=== PATIENT | female | born 1930 | race Caucasian/White ===

== ENCOUNTER 2017-04-16 15:52 | Inpatient (IN) ==
--- NOTE | 2017-04-16 16:27 | Emergency Department Report ---
SOB HPI - General Chief Complaint: Shortness of Breath/Dyspnea Stated Complaint: SOA,weakness Time Seen by Provider: 04/16/17 16:10 Source: patient, old records reviewed Limitations: no limitations - History of Present Illness Pt comes to us from the [facility] with reports of SOA and wheezing. Patient was seen in our ER on 04/15 due to the same and stabilized after receiving lasix. Apparently patient became SOA with wheezing again today and came to the ER. Family reports that she was requiring supplemental oxygen and had to sleep in a recliner because when she would lay flat her oxygen saturations would drop in the low 80's. Patient is alert and oriented, she is in no acute distress at this time. Room air sats 93 - 95% Lungs have crackles bilaterally. MD Complaint: shortness of breath Onset (ago): day(s) Context: other (evaluated in the ED last night; diuresed and stabilized and was sent back to [place] ) - Related Data Home Medications Medication Instructions Recorded Confirmed Donepezil HCl [Aricept] 10 mg PO HS #0 08/04/12 04/16/17 Levothyroxine Tab [Synthroid] 100 mcg PO ACB #0 08/04/12 04/16/17 Nitroglycerin 0.4 mg SL Q5MIN3 PRN #0 08/04/12 04/16/17 Famotidine [Pepcid] 20 mg PO HS #0 08/05/12 04/16/17 Carvedilol [Coreg] 3.125 mg PO BIDWM #0 tab 10/09/14 04/16/17 Primidone [Mysoline] 25 mg PO BID #0 tab 10/09/14 04/16/17 Acetaminophen 650 mg PO Q5H PRN 04/16/17 04/16/17 Aspirin [Adult Low Dose Aspirin EC] 81 mg PO DAILY 04/16/17 04/16/17 Cholecalciferol (Vitamin D3) 2,000 unit PO DAILY 04/16/17 04/16/17 [Vitamin D3] Furosemide [Lasix] 20 mg PO BID 04/16/17 04/16/17 Insulin Glargine,Hum.rec.anlog 40 unit SQ HS 04/16/17 04/16/17 [Basaglar Kwikpen U-100] Insulin Lispro [HumaLOG] 16 unit SQ TIDWM 04/16/17 04/16/17 Lactobacillus Acidophilus 1 cap PO DAILY 04/16/17 04/16/17 [Probiotic] Omeprazole [Prilosec] 20 mg PO ACB 04/16/17 04/16/17 Ondansetron HCl 4 mg PO Q6H PRN 04/16/17 04/16/17 Potassium Chloride 10 meq PO DAILY 04/16/17 04/16/17 Previous Rx's Medication Instructions Recorded Losartan Potassium 25 mg PO HS 30 Days #0 10/12/14 Allergies Allergy/AdvReac Type Severity Reaction Status Date / Time No Known Drug Allergies Allergy Unknown Verified 04/16/17 16:18 Review of Systems All systems: reviewed and negative except as stated Constitutional: Denies: fever, chills Eyes: Denies: eye pain, eye discharge ENT: Denies: ear pain, throat pain Cardiovascular: Reports: dyspnea on exertion, orthopnea. Denies: chest pain, palpitations Respiratory: Reports: dyspnea. Denies: cough Gastrointestinal: Denies: abdominal pain, nausea, vomiting Genitourinary: Denies: urgency, dysuria, frequency Musculoskeletal: Denies: back pain Neurological: Denies: headache Psychiatric: Denies: anxiety Endocrine: Reports: fatigue PFSH Patient Stated Medical History Dementia Yes Parkinson's Disease Yes Dysphagia Yes Coronary Artery Disease Yes Other GI Yes: ibs Hx Renal Disease Yes: ckd Other Musculoskeletal Yes: dorsalgia Clinic Medical History (Last Updated 09/22/16 @ 12:07 by Jasmin Quevedo APRN ) GERD (gastroesophageal reflux disease) (Chronic Medical) Essential tremor (Chronic Medical) Type 2 diabetes mellitus (Chronic Medical) Chronic kidney disease (CKD) (Chronic Medical) Hypothyroidism (Chronic Medical) HTN (hypertension) (Chronic Medical) Dementia (Chronic Medical) Peptic ulcer disease (Chronic Medical) Pancreatitis (Inactive Medical) Family History: Family History Father , 81 stroke No problems noted. Mother , Colon cancer Colon cancer - Social History Smoking status: Never smoker Alcohol intake: never Housing: [facility]pc Physical Exam - Limitations Limitations: no limitations - General General appearance: alert, in no apparent distress - Normal Exams: Head:: Normocephalic without trauma Eyes:: Pupils are PERRLA w/ EOMI, No scleral icterus, irritation, or foreign bodies noted Neck:: Full range of motion, without adenopathy, JVD, bruits or thyromegaly Abdomen:: Bowel sounds positive, soft, non-tender, non-distended, no hepatosplenomegaly, masses or bruits noted Lymphatic:: No lymphadenopathy, or lymphedema noted Musculoskeletal:: No tenderness, or deformity noted, good range of motion, all extremities - Expanded Respiratory Exam Location: Left: rales, Right: rales, Lower: rales - Cardiovascular Cardiovascular exam: Present: regular rate, systolic murmur Course Vital Signs Temperature 97.5 F 04/16/17 15:55 Pulse Rate 85 04/16/17 15:55 Respiratory Rate 26 H 04/16/17 15:55 Blood Pressure 128/65 04/16/17 15:55 Pulse Oximetry 93 04/16/17 15:55 Temperature 97.5 F 04/16/17 15:55 Pulse Rate 81 04/16/17 17:15 Respiratory Rate 22 04/16/17 17:00 Blood Pressure 124/59 04/16/17 17:15 Pulse Oximetry 92 04/16/17 17:15 Shortness of Breath/Dyspnea - [facility] Narrative Medical decision making narrative: EKG indicates ST depression; troponin elevated at 1.87. CXR indicates bilateral stable pleural effusions. Dr. Fernandez is here to see patient. Discusses option of transferring patient to [place] for probable heart catheterization however patient and family declined this. They would prefer to stay here in [place] and have conservative treatment. Patient will be admitted to the hospitalist service with cardiology consult and Dr Guajardo accepts patient. Patient is a DNR. - Differential Diagnosis Likely: congestive heart failure - Medical Records Attestation: I reviewed the patient's medical records. - Lab Data Attestation: I reviewed the patient's lab results. Result diagrams: 04/16/17 16:11 04/16/17 16:11 Lab Results 04/16/17 04/16/17 04/16/17 Range/Units 16:11 16:11 16:11 WBC 6.6 (4.5-11.0) T/MM3 RBC 4.60 (4.00-5.20) M/MM3 Hgb 12.8 (12-16) GM/DL Hct 41.5 (36-46) % MCV 90.2 (80-100) UM3 MCH 27.8 (26-34) UUG MCHC 30.8 L (31-37) GM/DL RDW Std Deviation 52.2 H (36.9-50.2) FL Plt Count 193 (130-400) T/MM3 MPV 10.1 (9.4-12.4) UM3 Immature Gran % (Auto) 0.0 (0.0-0.5) % Neut % (Auto) 59.0 (33-66) % Lymph % (Auto) 31.6 (23-45) % Beadle % (Auto) 7.7 (0-9.0) % Eos % (Auto) 1.4 (0-4) % Baso % (Auto) 0.3 (0-2) % Neut # (Auto) 3.9 (1.8-7.7) T/MM3 Lymph # (Auto) 2.1 (1-4.8) T/MM3 Beadle # (Auto) 0.5 (0-0.8) T/MM3 Eos # (Auto) 0.1 (0-0.5) T/MM3 Baso # (Auto) 0.0 (0-0.2) T/MM3 Abs Immat Gran (auto) 0.00 (0.00-0.03) T/MM3 Turbidity < 20 (0-20) Sodium 149 H (134-144) MEQ/L Potassium 4.7 (3.6-5) MEQ/L Chloride 107 (98-107) MEQ/L Carbon Dioxide 29 (22-30) MEQ/L Anion Gap 13 (5-15) MEQ/L BUN 39.0 H D (7-17) MG/DL Creatinine 1.7 H D (0.7-1.2) mg/dL GFR Calculation 28 BUN/Creatinine Ratio 23 (6-26) RATIO Glucose 151 H (65-110) MG/DL Calculated Osmolality 298 H (261-280) MOSM/KG Calcium 9.3 (8.4-10.2) MG/DL Total Bilirubin 0.80 (0.20-1.30) MG/DL Icterus Index < 2 (0-7) AST 32 (14-36) U/L ALT 23 (9-52) U/L Alkaline Phosphatase 76 (38-126) U/L Troponin I 1.780 H D (0-0.12) ng/ml NT-Pro-B Natriuret Pep 4150 H (0-175) pg/mL Total Protein 7.0 (6.3-8.2) G/DL Albumin 4.1 (3.5-5.0) g/dL Globulin 2.9 (2.4-3.6) G/DL Albumin/Globulin Ratio 1.4 (1.1-2.2) RATIO Specimen Hemolysis < 15 (0-25) Ur Collection Type Urine, void-cc/notcc Urine Color Yellow (YELLOW) Urine Clarity Clear Urine pH 5.0 (5.0-8.0) Ur Specific Roberts 1.010 L (1.015-1.025) Urine Protein Negative (NEGATIVE) Urine Glucose (UA) Negative (NEGATIVE) Urine Ketones Negative (NEGATIVE) Urine Occult Blood Negative (NEGATIVE) Urine Nitrate Negative (NEGATIVE) Urine Bilirubin Negative (NEGATIVE) Urine Urobilinogen 0.2 (NORMAL) EU/DL Ur Leukocyte Esterase Negative (NEGATIVE) Urinalysis Comment Microscopic not ind. - Radiology Data Attestation: I reviewed the patient's radiology results. Disposition Clinical Impression: Elevated troponin, Chronic kidney disease (CKD) Congestive heart failure Qualifiers: Heart failure type: unspecified Heart failure chronicity: acute on chronic Qualified Code(s): I50.9 - Heart failure, unspecified Disposition: 02 To [facility] Acute Care Prescriptions: No Action Levothyroxine Tab [Synthroid] 100 mcg PO ACB #0 Nitroglycerin 0.4 mg SL Q5MIN3 PRN #0 PRN Reason: Chest Pain Famotidine [Pepcid] 20 mg PO HS #0 Carvedilol [Coreg] 3.125 mg PO BIDWM #0 tab Primidone [Mysoline] 25 mg PO BID #0 tab Losartan Potassium 25 mg PO HS 30 Days #0 Insulin Lispro [HumaLOG] 16 unit SQ TIDWM Insulin Glargine,Hum.rec.anlog [Basaglar Kwikpen U-100] 40 unit SQ HS Omeprazole [Prilosec] 20 mg PO ACB Potassium Chloride 10 meq PO DAILY Furosemide [Lasix] 20 mg PO BID Lactobacillus Acidophilus [Probiotic] 1 cap PO DAILY Cholecalciferol (Vitamin D3) [Vitamin D3] 2,000 unit PO DAILY Ondansetron HCl 4 mg PO Q6H PRN PRN Reason: Nausea &/Or Vomiting Donepezil HCl [Aricept] 10 mg PO HS #0 Acetaminophen 650 mg PO Q5H PRN PRN Reason: Pain Aspirin [Adult Low Dose Aspirin EC] 81 mg PO DAILY Referrals: Rohan Schuster MD [Family Provider] - Time of Disposition: 17:59 - Seen By: galen
--- NOTE | 2017-04-16 16:49 | XRay Report ---
Indication: soa PROCEDURE: XR chest 1V: Encounter: Initial Comparison: April 14, 2017 Findings: Small left pleural effusion is similar to the prior study. Trace right effusion is unchanged. No pneumothorax. Continued compressive atelectasis in the left lower lobe. Heart size and mediastinal contours are stable. Pulmonary vascularity appears normal. Impression: Stable small effusions. .
[2017-04-16] MEDS ORDERED: ASPIRIN 81 MG CHEWABLE TABLET PO ONE (17:25)
[2017-04-16] MEDS ORDERED: ONDANSETRON 4 MG/2 ML INJECTION IVP PRN (18:23)
[2017-04-16] MEDS ORDERED: SENNA + DOCUSATE TABLET PO PRN (18:23)
[2017-04-16] MEDS ORDERED: MORPHINE SULFATE 4mg INJECTION IVP PRN (18:23)
[2017-04-16] MEDS: SALINE FLUSH 10ml SYRINGE IVF PRN (18:24)
[2017-04-16] MEDS ORDERED: HEPARIN - PHARMACY CONSULT MC ONE (18:28)
[2017-04-16] MEDS ORDERED: HEPARIN 1,000unit/ml INJECTION 10ml IVP ONE (18:53)
--- NOTE | 2017-04-16 18:58 | Pharmacy Consult ---
Pharmacy Consult-Heparin - Laboratory Information Heparin Plt Count 193 T/MM3 (130-400) 04/16/17 16:11 - Consult Information HEPARIN CONSULT (Initial): Baseline platelet count = 193 T/mm3. PTT Target Range = 50-75 seconds Will give Heparin Bolus of 5000 units, start Heparin Drip at 1000 units/hr (25 ml/hr). Heparin 20,000 units in D5W 500ml. We will continue to monitor and make adjustments accordingly. Thank you, Susana Egan [facility]
[2017-04-16] MEDS ORDERED: ALBUTEROL/IPRATROPIUM 2.5mg-0.5mg/3ml NEB AEROSOL PRN (19:11)
--- NOTE | 2017-04-16 19:13 | History & Physical Report ---
History of Present Illness Date: 04/16/17 Chief complaint: dyspnea, CHF exacerbation HPI: Yoselin Ron is a pleasantly confused patient of Dr. Schuster's who resides at [facility]. She is seen in the presence of her sister, [place], who contributes significantly to Yoselin's history as she has dementia. Prior medical records, ED records, nursing notes and limited records from [facility] were all extensively reviewed and also contribute to the history. On 04/14 she was seen by Jasmin Monteiro APRN with Dr. Schuster, for increased shortness of breath and reported hypoxia at 88-90% on room air. At that time, she also complained of orthopnea and increased dyspnea with exertion. She reportedly stated that she didn't feel well but was unable to specify why. Exam revealed ~ 5 pound weight gain over a week as well as increased lower extremity edema, concerning for fluid overload secondary to CHF. She was started on Lasix 20 BID x 1 week with the intention of reducing the dose after a week to 20mg daily. She was also started on supplemental potassium 20 mEq daily at that time. CXR was obtained as an outpatient and revealed small pleural effusion though to be mild vascular or congestive failure with possibility of underlying left lower lobe pneumonia. She does not appear that she was not started on an antibiotic at that time as she was afebrile. She was seen again by her PCP on 04/16/17 with reports of increased oxygen demands and referred to [facility] where she was seen and thought to be in heart failure. She initially was on 10L non-rebreather but was able to be weaned to room air after receiving Lasix 40 IV. Labs at that time revealed stable BMP, mild hypernatremia (Na 145) and SCr 1.6. She has a known history of stage III chronic kidney disease. Review of prior labs indicates baseline GFR ~32 and baseline SCr ~1.4-1.6. At that time she was also noted to have a UTI which cultures revealed was secondary to E. coli. She was treated in the ED with monuril x 1 dose and discharged back to [facility]. Family reports that this morning, 04/16/17, she started to again have increased shortness of breath with wheezing and productive cough of yellow sputum. She reportedly had to sleep in her recliner due to her orthopnea and decreased oxygenation in the 80's when she would lay down. She returned to the ED for re-evaluation. Initial EKG revealed concerns for t-wave depression and changes. Dr. Mandujano, her orchestra teacher, was consulted and saw her in the ED, recommending transfer to [place] for possible heart cath. She and her family refused transfer, requesting to stay at [facility] for conservation treatment. Dr. Guajardo was consulted and she was accepted into impatient status for further evaluation, close cardiac and respiratory monitoring, respiratory cares and cardiac evaluation. Her length of stays is expected to exceed more than 2 over nights. She is seen in the ED, with family at the bedside. She denies any concerns or complaints, prompting family to report the recent history. She is noted to be tachypneic and frequently grinds her teeth on exam. She denies any chest pain. She eventually admits to a new cough with sputum production over the past few days. Family denies history of previous CHF exacerbation or respiratory issues. No recent fevers, chill, abdominal pain, nausea, vomiting or diarrhea. On exam, she is on room air with YEE at 91%, though tachypneic. Her oxygen saturation decreases to 87% when she sits forward for exam but recovers quickly after returning to initial position with head at 30 degrees. Family verifies that she is a DNR. Review of Systems ROS unobtainable: due to mental status All systems PM: 10-point ROS was reviewed, no additional remarkable complaints except - Constitutional Constitutional: Present: weakness (generalized). Absent: fever(s), malaise - EENMT Eyes: Absent: photophobia Ears: Absent: ear pain Nose: Absent: nosebleeds Mouth/Throat: Present: dry mouth. Absent: sore throat, changes in swallowing - Cardiovascular Cardiovascular: Present: dyspnea on exertion, orthopnea, edema, heart murmur. Absent: chest pain, palpitations, syncope Rhythm: Present: regular rhythm Vascular: Present: pedal edema. Absent: pallor of an extermity - Respiratory Respiratory: Present: cough, dyspnea, hemoptysis (x1 in ED per family), dyspnea on exertion, wheezing, chest congestion. Absent: pain on inspiration - Gastrointestinal Gastrointestinal: Present: dyspepsia. Absent: abdominal pain, change in bowel habits, diarrhea, nausea, vomiting - Genitourinary Genitourinary: Absent: dysuria, flank pain, hematuria Menstruation: post menopausal - Musculoskeletal Musculoskeletal: Present: muscle weakness. Absent: back pain, deformity - Integumentary/Breasts Integumentary: Absent: rash - Neurological Neurological: Present: confusion, weakness. Absent: convulsions, dizziness, focal weakness, headache(s) - Psychiatric Psychiatric: Absent: anxiety, depression - Endocrine Endocrine: Absent: flushing, palpitations - Hematologic/Lymphatic Hematologic/Lymphatic: Absent: easy bruising - Allergic/Immunologic Allergic/Immunologic: Absent: seasonal rhinorrhea Past Medical History Clinic Medical History CAD. Hypertension. Aortic stenosis. Dementia. GERD with history of PUD. Essential tremor. Diabetes Mellitus, Type 2. Chronic kidney disease, stage III - base GFR ~ 32; base SCr ~ 1.4-1.6. Hypothyroidism. Constipation. Insomnia. Parkinson's disease. IBS. Surgical History: Cholecystectomy. Family History Updates: Father , 81, stroke. Mother , Colon cancer. - Social History Smoking status: Never smoker Substance use type: does not use Alcohol intake frequency: does not drink Housing: [facility] ([place] Household members: none Current occupational status: retired Current residence: [place] Social history: PCP - Dr. Schuster. Cardio - Dr. Mandujano. Medications Home Medications Medication Instructions Recorded Confirmed Type Donepezil HCl [Aricept] 10 mg PO HS #0 08/04/12 04/16/17 History Levothyroxine Tab [Synthroid] 100 mcg PO ACB #0 08/04/12 04/16/17 History Nitroglycerin 0.4 mg SL Q5MIN3 PRN #0 08/04/12 04/16/17 History Famotidine [Pepcid] 20 mg PO HS #0 08/05/12 04/16/17 History Carvedilol [Coreg] 3.125 mg PO BIDWM #0 tab 10/09/14 04/16/17 History Primidone [Mysoline] 25 mg PO BID #0 tab 10/09/14 04/16/17 History Losartan Potassium 25 mg PO HS 30 Days #0 10/12/14 04/16/17 Rx Acetaminophen 650 mg PO Q5H PRN 04/16/17 04/16/17 History Aspirin [Adult Low Dose Aspirin EC] 81 mg PO DAILY 04/16/17 04/16/17 History Cholecalciferol (Vitamin D3) 2,000 unit PO DAILY 04/16/17 04/16/17 History [Vitamin D3] Furosemide [Lasix] 20 mg PO BID 04/16/17 04/16/17 History Insulin Glargine,Hum.rec.anlog 40 unit SQ HS 04/16/17 04/16/17 History [Basaglar Kwikpen U-100] Insulin Lispro [HumaLOG] 16 unit SQ TIDWM 04/16/17 04/16/17 History Lactobacillus Acidophilus 1 cap PO DAILY 04/16/17 04/16/17 History [Probiotic] Omeprazole [Prilosec] 20 mg PO ACB 04/16/17 04/16/17 History Ondansetron HCl 4 mg PO Q6H PRN 04/16/17 04/16/17 History Potassium Chloride 10 meq PO DAILY 04/16/17 04/16/17 History Allergies Allergy/AdvReac Type Severity Reaction Status Date / Time No Known Drug Allergies Allergy Unknown Verified 04/16/17 16:18 Exam Vital Signs: Temperature 97.5 F 04/16/17 15:55 Pulse Rate 81 04/16/17 17:15 Respiratory Rate 22 04/16/17 17:00 Blood Pressure 124/59 04/16/17 17:15 Pulse Oximetry 92 04/16/17 17:15 Telemetry Rhythm: Sinus Rhythm Comments: Patient is seen in the ED with family at bedside; stable on room air, though hypoxia with movement and sitting upright. - Constitutional Present: no acute distress, well nourished, well developed, obese, cooperative Comments: pleasantly confused. - Routine HEENT Exam Head: Present: normocephalic, atraumatic Eye: Present: PERRL. Absent: conjunctival icterus ENT: Present: mucous membranes dry - Routine Neck Exam Present: supple, full ROM, trachea midline - Routine Chest/Breast/Axilla Exam Chest wall: Absent: tenderness - Routine Respiratory Exam Present: dyspnea, decreased breath sounds Comments: increased respiratory effort and tachypnea on room air; productive cough; diminished breath sounds bilaterally with rhonchi and wheezing and crackles noted in bases. - Routine Cardiovascular Exam Present: RRR, S1, S2, murmur (2/6) - Routine Abdominal Exam Present: soft, normoactive bowel sounds, non distended, non tender. Absent: guarding - Routine Extremities Exam Present: edema (1-2+ bilaterally), non tender, pulses intact (1+ bilaterally.) - Routine Back/Spine/Pelvis Exam Back/Spine: Present: full ROM. Absent: vertebral tenderness Comments: generalized weakness requiring assistance leaning forward in bed. - Routine Skin Exam Present: dry, warm. Absent: jaundice Comments: afebrile. - Routine Neurological Exam Present: alert (person only), moving all extremities, hearing grossly intact, normal speech. Absent: oriented X3, facial asymmetry grinds teeth on exam. - Routine Psychiatric Exam Present: cooperative Results - Labs CBC & Chem 7: 04/16/17 16:11 04/16/17 16:11 Labs: Hypernatremia (Na 149). Hyperglycemia (151). Elevated renal function (SCr 1.7). Elevated troponin (1.780). Elevated BNP (4150). UA negative. - Imaging and Cardiology Chest x-ray Status: image reviewed by me Additional comments: Date of Exam: 04/16/17 Type of Exam(s): XR chest 1V Reason for Exam(s): soa Comparison: April 14, 2017 Findings: Small left pleural effusion is similar to the prior study. Trace right effusion is unchanged. No pneumothorax. Continued compressive atelectasis in the left lower lobe. Heart size and mediastinal contours are stable. Pulmonary vascularity appears normal. Impression: Stable small effusions. Assessment and Plan (1) Elevated troponin Current visit: Yes Status: Acute (2) Exertional dyspnea Current visit: Yes Status: Acute (3) Hypernatremia Current visit: Yes Status: Acute Assessment and Plan: 87-year-old pleasantly confused female admitted to elevated troponin and increased dyspnea with exertion and hypoxia concerning for congestive failure. Assessment: Dyspnea on exertion and orthopnea with resulting hypoxia, present on admission, acute. Elevated troponin (1.780), present on admission, acute. Congestive failure with elevated BNP and pedal edema, present on admission, acute. Hypernatremia (Na 149), present on admission, acute. CAD. Hypertension. Aortic stenosis. Dementia. GERD with history of PUD. Essential tremor. Diabetes Mellitus, Type 2. Chronic kidney disease, stage III - base GFR ~ 32; base SCr ~ 1.4-1.6. Hypothyroidism. Constipation. Insomnia. Parkinson's disease. IBS. Dysphagia Plan - 3/2/18; Admit to inpatient status under the care of Dr. Guajardo. Consult Dr. Mandujano for cardiac evaluation and treatment. He saw the patient in ED and recommend initiation of heparin drip for treatment of elevated troponin x 48 hours - consult pharmacology. Will obtain echocardiogram now. Per Dr. Mandujano, Lasix 40mg IV Q8H for fluid overload. Monitor urinary output closely as well as daily weights. Will hold home RODNEY, beta-nahomy and nitro given EKG changes. Monitor blood pressure closely. Elevated troponin in ED. Monitor serial troponins. Monitor closely on telemetry with continuos pulse oximetry. Oxygen as indicated to maintain SAO2 >90%, weaning as able. Given productive cough, will obtain respiratory panel now. Continue home insulin. Monitor BGMs closely as well as for signs of hypoglycemia. History of dysphagia - carb controlled soft diet with chopped meats and nectar thickened liquids. Recheck labs in AM to monitor blood counts, electrolytes and renal function. Upon discharge, patient's care will be returned to her PCP. 04/16/2017-8:45 PM-I reviewed this chart, the patient history, and the [facility]'s/PA 's documented findings as above. We discussed and formulated the assessment and plan as above with the additions below.-Dr. Guajardo Patient was seen this evening in her room accompanied by her sister and niece. The patient denies any complaints. She denies feeling short of breath. She denies any chest discomfort. She denies any nausea or vomiting. She denies any pain anywhere. She denies being hungry. She states she [facility] a [facility] with a walker. On exam she is alert and in no acute distress. She is very hard of hearing. HEENT reveal pupils to be equal. Oropharynx is moist. Neck is supple. She has mild JVD. Chest reveals decreased breath sounds in the bases. Cardiovascular reveals a regular rate and rhythm with a 3/6 systolic murmur. Abdomen is soft and nontender. Extremities are free of edema. Skin is warm and dry and without rashes. Impression and plan Elevated troponin/acute VT-family decided against transfer to [place] for heart catheterization after discussion with Dr. Mandujano. Plan is for medical management. Heparin drip will be initiated. Will obtain serial troponin. Continue on telemetry. Patient is DO NOT RESUSCITATE. The patient was given Lasix 1 in the emergency room for mild fluid overload. Follow-up CBC for med monitoring and basic metabolic profile for chronic kidney disease. Try to avoid hypotension with the patient's aortic stenosis. Discussed plans with the patient's sister and niece. Dr. Mandujano spoke to the patient's daughter by phone earlier today. DVT Prophylaxis: Heparin drip GI Prophylaxis: Protonix, Pepcid Resuscitation Status: Do Not Resuscitate - Time spent with patient Time with patient PN: 50 minutes - Physician Narrative Physician: Eva Guajardo MD Narrative: Date: 04/16/17 Time: 1905 Hospital Course Summary Disclaimer: The visit summary below is not to be considered part of the above Progress Note. Hospital Course: Plan - 04/16/17; Admit to inpatient status under the care of Dr. Guajardo. Consult Dr. Mandujano for cardiac evaluation and treatment. He saw the patient in ED and recommend initiation of heparin drip for treatment of elevated troponin x 48 hours - consult pharmacology. Will obtain echocardiogram now. Per Dr. Mandujano, Lasix 40mg IV Q8H for fluid overload. Monitor urinary output closely as well as daily weights. Will hold home RODNEY, beta-nahomy and nitro given EKG changes. Monitor blood pressure closely. Elevated troponin in ED. Monitor serial troponins. Monitor closely on telemetry with continuos pulse oximetry. Oxygen as indicated to maintain SAO2 >90%, weaning as able. Given productive cough, will obtain respiratory panel now. Continue home insulin. Monitor BGMs closely as well as for signs of hypoglycemia. History of dysphagia - carb controlled soft diet with chopped meats and nectar thickened liquids. Recheck labs in AM to monitor blood counts, electrolytes and renal function. Upon discharge, patient's care will be returned to her PCP.
[2017-04-16] MEDS ORDERED: FALL RISK - PHARMACY CONSULT XX ONE (20:28)
[2017-04-16] MEDS: HEPARIN DRIP 20,000 UNIT/500 ML BAG IV SCH (21:13)
[2017-04-16] MEDS: INSULIN GLARGINE 100unit/ml INJECTION SQ SCH (21:22)
[2017-04-16] MEDS: DONEPEZIL 10 MG TABLET PO SCH (21:23)
[2017-04-16] MEDS: PRIMIDONE 50 MG TABLET PO SCH (21:23)
[2017-04-17] MEDS: SALINE FLUSH 10ml SYRINGE IVF PRN (01:12)
[2017-04-17] MEDS: FUROSEMIDE 40 MG/4 ML INJECTION IVP SCH ×3 (01:12→21:42)
[2017-04-17 05:24] VITALS: BMI 34.4
[2017-04-17] MEDS: LEVOTHYROXINE 100 MCG TABLET PO SCH (05:39)
[2017-04-17] MEDS: OMEPRAZOLE 20 MG CAPSULE PO SCH (05:39)
[2017-04-17] MEDS: ALBUTEROL/IPRATROPIUM 2.5mg-0.5mg/3ml NEB AEROSOL SCH ×4 (07:22→22:04)
[2017-04-17] MEDS ORDERED: CARVEDILOL 3.125 MG TABLET PO SCH (08:00)
--- NOTE | 2017-04-17 08:03 | Pharmacy Consult ---
Pharmacy Consult-Heparin - Laboratory Information Heparin Plt Count 179 T/MM3 (130-400) 04/17/17 03:53 APTT 102.2 SEC (24-36) H 04/17/17 03:53 - Consult Information Heparin consult: morning PTT results = 102.2 seconds target PTT range= 50 - 75 seconds Called RN to hold Heparin x 20 minutes and then restart drip at 760 units/hr or 19 ml/hr Pharmacy will continue to monitor and adjust as needed. Thank you, Susana Egan [facility]
[2017-04-17] MEDS: INSULIN ASPART 100unit/ml INJECTION SQ SCH ×3 (08:27→17:31)
[2017-04-17] MEDS: ASPIRIN *EC* 81 MG TABLET PO SCH (08:27)
[2017-04-17] MEDS: LACTOBACILLUS (15B cfu) CAPSULE PO SCH (08:27)
[2017-04-17] MEDS: PRIMIDONE 50 MG TABLET PO SCH ×2 (08:27→21:43)
[2017-04-17] MEDS: POLYETHYL GLYCOL 3350 17gm PACKET PO SCH (08:28)
--- NOTE | 2017-04-17 09:09 | Cardiology Consult Note ---
<Inna Joe R - Last Filed: 04/17/17 11:41> History of Present Illness Consult date: 04/16/17 Requesting physician: Eva Guajardo Consult reason: congestive heart failure, aortic stenosis Chief complaint: Dyspnea History of present illness: Ms. Ron is an 87-year-old female with hx of CAD, CHF, , DM, HTN, hypothyroidism, CKD, GERD and dementia who presented to the ER at [facility] yesterday evening with c/o dyspnea. She has had concerns with dyspnea and wt gain over the last few days for which she has been seen and tx in the ER and with her PCP with diuretics. The patient has known dementia and is a poor historian, does not know why she is in the hospital. Does not know she's had problems breathing. Her sister is at bedside to assistance with hx and states that the pt had increased dyspnea yesterday. That she could not lay flat and her nursing facility had the pt laying sitting up in her recliner because that was the only way she could breath while she slept. Pt also had wheezing and was hypoxic therefore she was brought into the ER for further evaluation. Lab in ER showed an elevated troponin and EKG changes. Pt also has severe per echocardiogram. Dr. Mandujano assessed patient and it was recommended she be transferred to [place] for a HC and further evaluation. Patient and family request conservative management and would like to avoid a HC and stay in [place]. Patient was then admitted to hospitalist. On today's exam pt states she is "fine " and doesn't know why she has to be in the hospital. Her sister states that pt' s breathing is better but that she still can not lay flat without getting SOA. Denies any CP, N/V, diaphoresis. Review of Systems - Constitutional Constitutional: Present: fatigue, weight gain. Absent: chills, fever(s) - EENMT Eyes: Present: requires corrective lenses. Absent: change in vision - Cardiovascular Cardiovascular: Present: dyspnea on exertion, orthopnea, edema, heart murmur. Absent: chest pain, palpitations, syncope Rhythm: Present: regular rhythm - Respiratory Respiratory: Present: cough, dyspnea, dyspnea on exertion, wheezing - Gastrointestinal Gastrointestinal: Absent: abdominal pain, constipation, nausea, vomiting - Integumentary/Breasts Integumentary: Absent: erythema, lesions, rash - Neurological Neurological: Present: confusion. Absent: dizziness - Psychiatric Psychiatric: Absent: anxiety, hallucinations - Endocrine Endocrine: Absent: flushing, palpitations - Hematologic/Lymphatic Hematologic/Lymphatic: Present: easy bruising. Absent: easy bleeding PFSH Patient Stated Medical History Dementia Yes Transient Ischemic Attacks ( Yes TIA) Dental Problems Yes: partials Dysphagia Yes Hearing Loss Yes Angina Yes Other Cardiology Yes: esophageal spasms and DVT Diabetes Mellitus Type 2 Yes Other GI Yes: diarrhea with elevated BGM Hx Incontinence Yes: urgency Hx Renal Disease Yes: ckd Hx Urinary Tract Infection Yes Other Musculoskeletal Yes: dorsalgia Post Menopausal Yes Other Reproductive Yes: 2 uteruses Clinic Medical History (Last Updated 09/22/16 @ 12:07 by Jasmin Quevedo APRN ) GERD (gastroesophageal reflux disease) (Chronic Medical) Essential tremor (Chronic Medical) Type 2 diabetes mellitus (Chronic Medical) Chronic kidney disease (CKD) (Chronic Medical) Hypothyroidism (Chronic Medical) HTN (hypertension) (Chronic Medical) Dementia (Chronic Medical) Peptic ulcer disease (Chronic Medical) Pancreatitis (Inactive Medical) Surgical History: Cholecystectomy. Family History: Family History Father , 81 stroke No problems noted. Mother , Colon cancer Colon cancer Family History Updates: Father , 81, stroke. Mother , Colon cancer. - Social History Smoking status: Never smoker Substance use type: does not use Alcohol intake: never Alcohol intake frequency: does not drink Housing: detention ([facility]) Household members: none Current occupational status: retired Current residence: [place] Medications Home Medications Medication Instructions Recorded Confirmed Type Donepezil HCl [Aricept] 10 mg PO HS #0 08/04/12 04/16/17 History Levothyroxine Tab [Synthroid] 100 mcg PO ACB #0 08/04/12 04/16/17 History Primidone [Mysoline] 25 mg PO BID #0 tab 10/09/14 04/16/17 History Acetaminophen 650 mg PO Q5H PRN 04/16/17 04/16/17 History Aspirin [Adult Low Dose Aspirin EC] 81 mg PO DAILY 04/16/17 04/16/17 History Cholecalciferol (Vitamin D3) 2,000 unit PO DAILY 04/16/17 04/16/17 History [Vitamin D3] Insulin Glargine,Hum.rec.anlog 40 unit SQ HS 04/16/17 04/16/17 History [Basaglar Kwikpen U-100] Insulin Lispro [HumaLOG] 16 unit SQ TIDWM 04/16/17 04/16/17 History Lactobacillus Acidophilus 1 cap PO DAILY 04/16/17 04/16/17 History [Probiotic] Omeprazole [Prilosec] 20 mg PO ACB 04/16/17 04/16/17 History Ondansetron HCl 4 mg PO Q6H PRN 04/16/17 04/16/17 History Potassium Chloride 10 meq PO DAILY 04/16/17 04/16/17 History Albuterol/Ipratropium [Duoneb] 3 ml AEROSOL RTQID PRN #1 box 04/20/17 Rx Atorvastatin [Lipitor] 10 mg PO HS tab 04/20/17 Rx Furosemide [Lasix] 40 mg PO DAILY tab 04/20/17 Rx Senna + Docusate [Senna Plus 1 tab PO BID PRN tab 04/20/17 Rx Tablet] Allergies Allergy/AdvReac Type Severity Reaction Status Date / Time No Known Drug Allergies Allergy Unknown Verified 04/16/17 16:18 Exam Vital signs: Temperature 95.8 F L 04/17/17 07:41 Pulse Rate 91 04/17/17 07:41 Respiratory Rate 20 04/17/17 07:41 Blood Pressure 128/65 04/17/17 07:41 Pulse Oximetry 90 04/17/17 07:41 - Constitutional no acute distress, obese - Routine HEENT Exam Eye: Present: EOMI ENT: Absent: dentition normal (Loose dentures with missing teeth.) Throat: normal inspection - Routine Neck Exam Present: JVD - Routine Respiratory Exam Present: dyspnea, crackles. Absent: respiratory distress, wheezes Comments: Bibasilar crackles - Routine Cardiovascular Exam Present: RRR, murmur Comments: III/ murmur - Routine Abdominal Exam Present: soft, distended - Routine Extremities Exam Present: edema, pulses intact Comments: 1+ BLE edema - Routine Skin Exam Present: intact, dry, warm. Absent: cyanosis, erythema, lesions, rash - Routine Neurological Exam Present: alert. Absent: oriented X3 - Routine Psychiatric Exam Present: normal affect, cooperative. Absent: normal thought process, good insight, good judgment, agitated Results 04/17/17 03:53 03/03/18 03:53 Cardiac Enzymes 04/16/17 04/17/17 Range/Units 22:09 03:53 Troponin I 1.480 H 1.410 H (0-0.12) ng/ml Coagulation 04/17/17 Range/Units 03:53 APTT 102.2 H (24-36) SEC CBC 04/17/17 Range/Units 03:53 WBC 6.3 (4.5-11.0) T/MM3 RBC 4.55 (4.00-5.20) M/MM3 Hgb 12.5 (12-16) GM/DL Hct 40.1 (36-46) % Plt Count 179 (130-400) T/MM3 Neut # (Auto) 3.1 (1.8-7.7) T/MM3 Lymph # (Auto) 2.7 (1-4.8) T/MM3 Loving # (Auto) 0.4 (0-0.8) T/MM3 Eos # (Auto) 0.1 (0-0.5) T/MM3 Baso # (Auto) 0.1 (0-0.2) T/MM3 Comprehensive Metabolic Panel 04/17/17 Range/Units 03:53 Sodium 145 H (134-144) MEQ/L Potassium 4.4 (3.6-5) MEQ/L Chloride 102 (98-107) MEQ/L Carbon Dioxide 29 (22-30) MEQ/L BUN 40.0 H (7-17) MG/DL Creatinine 1.5 H D (0.7-1.2) mg/dL Glucose 138 H (65-110) MG/DL Calcium 10.0 (8.4-10.2) MG/DL Intake and Output 04/16/17 04/17/17 04/17/17 22:59 06:59 14:59 Intake Total 228.75 / 228.75 240 / 240 Output Total 550 / 550 2074 300 / 300 Balance -550 / -550 -1846.25 / -1846.25 -60 / -60 Intake: IV 203.75 / 203.75 Heparin Drip 20,000 unit In 500 203.75 / 203.75 ml @ 1,000 UNIT/HR 25 mls/hr IV .Q20H [facility] Rx#:[id number] Oral 25 / 25 240 / 240 Output: Urine 550 / 550 2074 300 / 300 Other: Urine Appearance Clear Clear Clear Urine Color Yellow Yellow Pale Yellow Urine Odor Normal Normal Stool Color Brown Brown Stool Consistency Soft Size of Bowel Movement Small Small # Voids 1 # Bowel Movements 1 Weight 97 kg 92.4 kg Patient Weight 04/18/17 06:59 Weight 92.4 kg - Imaging and Cardiology Echo: image reviewed (Dictation pending, severe ) EKG results: report reviewed - EKG Interpretation EKG: sinus rhythm (new ST depression) Assessment and Plan - Assessment and Plan (1) NSTEMI (non-ST elevated myocardial infarction) Status: Acute Troponin peaked at 1.780, trended down. EKG NSR with new ST depression. Family and pt refusing HC. Con't ASA. Heparin gtt x48 hours. Monitor tele. (2) CHF exacerbation Status: Acute CXR shows small left pleural effusion, trace stable right effusion. Echo 04/16/2017: Severe with a valve area of about 0.5cm2 with a normal LV function, EF 65% Cr slightly improved today from 1.7 to 1.5. Good UOP with negative fluid balance. Decrease Lasix 40mg IV to BID. K+ WNL, monitor BMP and Mag. Con't to monitor I&O's and Lab. (3) Aortic stenosis Status: Acute Conservative management per family and pt request. Avoid BB, nitrates. D/c'd Coreg. Monitor. (4) Coronary artery disease Status: Chronic Con't ASA. (5) Chronic kidney disease (CKD) Status: Chronic Baseline 1.4-1.6. Cr today 1.5 (1.7). Decreasing Lasix to 40mg IV BID. Monitor lab closely. (6) Hypernatremia Status: Acute Na+145 today (149) Avoiding IVF. Con't to monitor with IV Lasix. (7) Type 2 diabetes mellitus Status: Chronic Per Primary team. (8) HTN (hypertension) Status: Chronic BP stable. Monitor off of BB. (9) Hypothyroidism Status: Chronic Con't Levothyroxine. Primary team managing. (10) GERD (gastroesophageal reflux disease) Status: Chronic Con't PPI. (11) Dementia Status: Chronic Primary managing. Hospital Course Summary Disclaimer: The visit summary below is not to be considered part of the above Progress Note. Hospital Course: Plan - 04/16/17; Admit to inpatient status under the care of Dr. Guajardo. Consult Dr. Mandujano for cardiac evaluation and treatment. He saw the patient in ED and recommend initiation of heparin drip for treatment of elevated troponin x 48 hours - consult pharmacology. Will obtain echocardiogram now. Per Dr. Mandujano, Lasix 40mg IV Q8H for fluid overload. Monitor urinary output closely as well as daily weights. Will hold home RODNEY, beta-nahomy and nitro given EKG changes. Monitor blood pressure closely. Elevated troponin in ED. Monitor serial troponins. Monitor closely on telemetry with continuos pulse oximetry. Oxygen as indicated to maintain SAO2 >90%, weaning as able. Given productive cough, will obtain respiratory panel now. Continue home insulin. Monitor BGMs closely as well as for signs of hypoglycemia. History of dysphagia - carb controlled soft diet with chopped meats and nectar thickened liquids. Recheck labs in AM to monitor blood counts, electrolytes and renal function. Upon discharge, patient's care will be returned to her PCP. <Orion Mandujano - Last Filed: 04/22/17 13:02> [facility] Patient Stated Medical History Dementia Yes Transient Ischemic Attacks ( Yes TIA) Dental Problems Yes: partials Dysphagia Yes Hearing Loss Yes Angina Yes Other Cardiology Yes: esophageal spasms and DVT Diabetes Mellitus Type 2 Yes Other GI Yes: diarrhea with elevated BGM Hx Incontinence Yes: urgency Hx Renal Disease Yes: ckd Hx Urinary Tract Infection Yes Other Musculoskeletal Yes: dorsalgia Post Menopausal Yes Other Reproductive Yes: 2 uteruses Clinic Medical History (Last Updated 09/22/16 @ 12:07 by Jasmin Quevedo APRN ) GERD (gastroesophageal reflux disease) (Chronic Medical) Essential tremor (Chronic Medical) Type 2 diabetes mellitus (Chronic Medical) Chronic kidney disease (CKD) (Chronic Medical) Hypothyroidism (Chronic Medical) HTN (hypertension) (Chronic Medical) Dementia (Chronic Medical) Peptic ulcer disease (Chronic Medical) Pancreatitis (Inactive Medical) Family History: Family History Father , 81 stroke No problems noted. Mother , Colon cancer Colon cancer Exam Vital signs: Temperature 96.7 F L 04/20/17 07:00 Pulse Rate 82 04/20/17 08:00 Respiratory Rate 20 04/20/17 09:21 Blood Pressure 118/58 04/20/17 07:00 Pulse Oximetry 94 04/20/17 09:21 Results 04/19/17 04:15 04/20/17 04:56 Assessment and Plan - Attestation Attestation Narrative: 04/22/17 13:02 Recommendation After examining the patient I agree with the above assessment. I am involved in the formulation of the patient's plan of care. - Assessment and Plan (1) Dementia Status: Chronic (2) HTN (hypertension) Status: Chronic (3) Hypothyroidism Status: Chronic (4) Chronic kidney disease (CKD) Status: Chronic (5) Type 2 diabetes mellitus Status: Chronic (6) GERD (gastroesophageal reflux disease) Status: Chronic (7) Coronary artery disease Status: Chronic (8) Hypernatremia Status: Acute (9) CHF exacerbation Status: Acute (10) Aortic stenosis Status: Acute (11) NSTEMI (non-ST elevated myocardial infarction) Status: Acute Hospital Course Summary Disclaimer: The visit summary below is not to be considered part of the above Progress Note.
--- NOTE | 2017-04-17 15:55 | Progress Note ---
- Date 04/17/17 Subjective: Yoselin is seen in follow up. Family member at bedside reports patient is anxious to get OOB to a chair. They report she is bedbound due to her cardiac condition. I have d/w RN- pt is a very high fall risk- she attempts to get up suddenly from commode and is very impulsive (underlying dementia). They are concerned that she is a very high fall/injury risk on a heparin gtt, so prefer that she remains on bedrest until heparin is completed. Her PTT was a bit high earlier- pharmacy adjusting per protocol. Small amount of hemoptysis, resolved. No other s/sx of acute bleeding. Objective Vital signs: Temperature 96.7 F L 04/17/17 15:00 Pulse Rate 105 H 04/17/17 15:07 Respiratory Rate 18 04/17/17 15:24 Blood Pressure 123/66 04/17/17 15:00 Pulse Oximetry 92 04/17/17 15:24 Rhythm: Normal Sinus Rhythm Cardiac Ectopy: PAC's Height/Weight/BMI: Height 1.68 m Weight 92.4 kg Body Mass Index 34.4 Comments: some ST depression. Occasional PACs. No ST elevation appreciated. - Constitutional Present: no acute distress, obese, cooperative - Routine HEENT Exam Head: Present: normocephalic, atraumatic Eye: Present: EOMI, PERRL ENT: Present: mucous membranes moist - Routine Respiratory Exam Present: CTA bilaterally. Absent: dyspnea, rhonchi, crackles - Routine Cardiovascular Exam Present: RRR, S1, S2, murmur - Routine Abdominal Exam Present: soft, non distended, non tender - Routine Extremities Exam Present: cyanosis, edema (trace LE) - Routine Musculoskeletal Exam Musculoskeletal: Present: moving extremities well - Routine Skin Exam Present: intact, dry, warm - Routine Neurological Exam Present: alert, moving all extremities - Routine Psychiatric Exam Present: cooperative, unable to assess. Absent: good insight, good judgment ( underlying dementia) Results - Labs CBC & Chem 7: 04/17/17 03:53 04/17/17 03:53 Assessment and Plan (1) Elevated troponin Current visit: Yes Status: Acute (2) Exertional dyspnea Current visit: Yes Status: Acute (3) Hypernatremia Current visit: Yes Status: Acute Assessment and Plan: Assessment: Acute OK/NSTEMI Acute respiratory failure, multifactorial Congestive failure with elevated BNP and pedal edema, present on admission, acute. (HFpEF/valvular) Severe Aortic stenosis CAD Hypernatremia (POA) Hypertension Dementia GERD with history of PUD Essential tremor Diabetes Mellitus, Type 2 Chronic kidney disease, stage III - base GFR ~ 32; base SCr ~ 1.4-1.6. Hypothyroidism Constipation Insomnia Parkinson's disease IBS Dysphagia DNR STATUS Plan NSTEMI - troponin trending down. Medical management. Dr. Mandujano following. Notes reviewed. Coreg DC'd, avoid nitrates/BB given aortic stenosis. Dr. Mandujano had recommended transfer to [place], but family requested conservative care, hence she remains here. Medical management will be plan of care. Heparin gtt per protocol. Continue PO ASA. Check lipids, start low dose Lipitor. <RT reported concern for TB screening given hemoptysis- this is most likely due to heparin gtt with supratherapeutic PTT. She has no other concerning sx for TB, therefore, I don't believe that there is any need to screen for this.> Continue diuretics for now. Her labs appear a bit dry, but kidney function is at baseline. Given severity of aortic stenosis, it would be prudent to keep her on the dry side. BG is controlled. Continue current insulin. Some concern for dysphagia- cont. thickened liquids, altered diet. ST trupti. Daughter is RN, and is planning to fly in tomorrow to see patient. Patient has significant dementia, and is a fall risk. Continue bedrest, with up to BSC and dangle at edge of bed until heparin gtt is off to avoid injury if possible. DVT Prophylaxis: Heparin drip Resuscitation Status: Do Not Resuscitate - Time spent with patient Time with patient PN: 25 minutes - Physician Narrative Physician: Chang Julien MD Narrative: Date: 04/17/17 Time: 1630 Have independently interviewed and examined pt. Chart reviewed. Case discussed with my CREDIT AUTHORIZER. Care plan developed with my supervision; agree with above. Resting in bed, watching TV. Breathing okay-not feeling pain with breathing, but some cough/congestion. Tolerating O2-saturations stable. Eating well. Not having ab pain. Bowels moving. No f/c. Does want to be up-family notes can get very impulsive. Lungs: decreased bilaterally, no distress CV: regular with murmur. AB: soft nt , slight distention BS present MSE: awake, alert, appears comfortable. Plan: Continue with Heparin drip, Cardiology decreased Lasix to 40mg IV BID. Monitor lab. Continue with supportive care. Hospital Course Summary Disclaimer: The visit summary below is not to be considered part of the above Progress Note. Hospital Course: 04/16/17 Admit to inpatient status under the care of Dr. Guajardo. Consult Dr. Mandujano for cardiac evaluation and treatment. He saw the patient in ED and recommend initiation of heparin drip for treatment of elevated troponin x 48 hours - consult pharmacology. Will obtain echocardiogram now. Per Dr. Mandujano, Lasix 40mg IV Q8H for fluid overload. Monitor urinary output closely as well as daily weights. Will hold home RODNEY, beta-nahomy and nitro given EKG changes. Monitor blood pressure closely. Elevated troponin in ED. Monitor serial troponins. Monitor closely on telemetry with continuos pulse oximetry. Oxygen as indicated to maintain SAO2 >90%, weaning as able. Given productive cough, will obtain respiratory panel now. Continue home insulin. Monitor BGMs closely as well as for signs of hypoglycemia. History of dysphagia - carb controlled soft diet with chopped meats and nectar thickened liquids. Recheck labs in AM to monitor blood counts, electrolytes and renal function. Upon discharge, patient's care will be returned to her PCP. 04/17/17 NSTEMI- troponin trending down. Medical management. Dr. Mandujano following. Notes reviewed: Coreg discontinued; avoid nitrates/BB given aortic stenosis. Lasix decreased to 40mg IV BID. Good UOP with negative fluid balance. Cr slightly improved today from 1.7 to 1.5. Heparin gtt per protocol. Continue PO ASA. Check lipids, start low dose Lipitor. RT reported concern for TB screening given hemoptysis- this is most likely due to heparin gtt with supratherapeutic PTT. She has no other concerning sx for TB, therefore, I don't believe that there is any need to screen for this. Continue diuretics for now. Her labs appear a bit dry, but kidney function is at baseline. Given severity of aortic stenosis, it would be prudent to keep her on the dry side. BG is controlled. Continue current insulin. Some concern for dysphagia- cont. thickened liquids, altered diet. ST following. Daughter is RN, and is planning to fly in tomorrow to see patient. Patient has significant dementia, and is a fall risk. Continue bedrest, with up to BSC and dangle at edge of bed until heparin gtt is off to avoid injury if possible.
--- NOTE | 2017-04-17 20:00 | Echocardiogram ---
DATE OF PROCEDURE 04/16/2017 This is a two-dimensional echo with spectral Doppler, color-flow and M-mode. It was obtained in a patient with murmur and congestive heart failure. Left atrium is dilated. Left ventricular end-diastolic dimension is normal. Left ventricular wall thickness is increased. LV systolic function is normal with ejection fraction of about 65%. Right atrium is normal. Right ventricle is normal. Aortic root dimension is normal. Mitral valve is sclerotic with mitral annulus calcification. There is no mitral stenosis. Mild mitral regurgitation is present. Aortic valve is calcified and restriction on opening motion is present. Transaortic velocities are increased with a velocity of 4.88 m/sec with a peak gradient of 95 and mean gradient of 68. Aortic valve area is about 0.5 cm2. There is no aortic insufficiency. Trace of tricuspid regurgitation is present with estimated pulmonary artery systolic pressure of 30. Pulmonary valve shows trace of pulmonary insufficiency. There is no pericardial effusion. IMPRESSION 1. Normal LV systolic function with ejection fraction of 65%. 2. Concentric left ventricular hypertrophy. 3. Mitral annulus calcification with mitral sclerosis and mild mitral regurgitation. 4. Severe aortic stenosis with a valve area of 0.5 cm2. 5. Trace of tricuspid regurgitation with normal estimated pulmonary artery systolic pressure of 30. 6. Trace of pulmonary insufficiency. 7. Left atrial dilation. MTDD
[2017-04-17] MEDS: HEPARIN DRIP 20,000 UNIT/500 ML BAG IV SCH (21:42)
[2017-04-17] MEDS: ATORVASTATIN 10 MG TABLET PO SCH (21:43)
[2017-04-17] MEDS: DONEPEZIL 10 MG TABLET PO SCH (21:44)
[2017-04-17] MEDS: INSULIN GLARGINE 100unit/ml INJECTION SQ SCH (21:45)
[2017-04-18] MEDS: OMEPRAZOLE 20 MG CAPSULE PO SCH (05:43)
[2017-04-18] MEDS: LEVOTHYROXINE 100 MCG TABLET PO SCH (05:43)
[2017-04-18] MEDS: ALBUTEROL/IPRATROPIUM 2.5mg-0.5mg/3ml NEB AEROSOL SCH ×4 (07:19→20:00)
--- NOTE | 2017-04-18 08:05 | Pharmacy Consult ---
Pharmacy Consult-Heparin - Laboratory Information Heparin Plt Count 182 T/MM3 (130-400) 04/18/17 04:36 APTT 50.6 SEC (24-36) H 04/18/17 04:36 - Consult Information Heparin consult: goal PTT range= 50 - 75 seconds 04/17/17 1512 PTT= 52.3 seconds, rate increased by 1 ml to 20 ml/hr (800 units/hr) 04/18/17 0436 PTT= 50.6 seconds, ordered increase of rate to 21 ml/hr (840 units/ hr) Pharmacy will continue to monitor and adjust. Thank you, Susana Egan, [facility]
[2017-04-18] MEDS: LACTOBACILLUS (15B cfu) CAPSULE PO SCH (08:32)
[2017-04-18] MEDS: FUROSEMIDE 40 MG/4 ML INJECTION IVP SCH ×2 (08:32→20:41)
[2017-04-18] MEDS: ASPIRIN *EC* 81 MG TABLET PO SCH (08:33)
[2017-04-18] MEDS: PRIMIDONE 50 MG TABLET PO SCH ×2 (08:33→20:42)
[2017-04-18] MEDS: INSULIN ASPART 100unit/ml INJECTION SQ SCH ×6 (08:33→16:39)
[2017-04-18] MEDS: POLYETHYL GLYCOL 3350 17gm PACKET PO SCH (08:35)
[2017-04-18] MEDS: HEPARIN DRIP 20,000 UNIT/500 ML BAG IV SCH ×2 (08:35→18:07)
[2017-04-18] MEDS: MAGNESIUM SULFATE 1gm PREMIX 1 GM/100 ML BAG IV SCH ×2 (11:10→12:12)
[2017-04-18] MEDS ORDERED: acetaZOLAMIDE 250 MG TABLET PO ONE (14:02)
--- NOTE | 2017-04-18 14:23 | Progress Note ---
- Date 04/18/17 Subjective: F/U: Acute AK/NSTEMI, Acute respiratory failure, Congestive Heart failure, Severe Aortic stenosis Doing better today. Does report some SOA/Chest congestion but breathing easier than prior days. No chest pain. Eating well-no nausea or ab pain. Less anxious and confused today. Objective Vital signs: Temperature 97.2 F 04/18/17 07:40 Pulse Rate 86 04/18/17 08:00 Respiratory Rate 18 04/18/17 11:35 Blood Pressure 126/60 04/18/17 07:40 Pulse Oximetry 94 04/18/17 07:40 Rhythm: Normal Sinus Rhythm Cardiac Ectopy: PAC's Height/Weight/BMI: Height 1.68 m Weight 91.9 kg Body Mass Index 34.4 - Constitutional Present: well nourished, well developed, average body habitus, obese - Routine HEENT Exam Head: Present: normocephalic, atraumatic Eye: Present: EOMI, PERRL ENT: Present: mucous membranes moist - Routine Respiratory Exam Present: decreased breath sounds, crackles (Faint basilar), diminished air movement (Basilar blunting). Absent: respiratory distress - Routine Cardiovascular Exam Present: RRR, murmur - Routine Abdominal Exam Present: soft, normoactive bowel sounds, non distended, non tender - Routine Extremities Exam Present: edema (Trace pretibial, +1 pedal edema bilaterally). Absent: cyanosis , clubbing - Routine Musculoskeletal Exam Musculoskeletal: Present: no clubbing or cyanosis - Routine Skin Exam Present: dry, warm - Routine Neurological Exam Present: alert, CN II-XII intact, moving all extremities, vision grossly intact , hearing grossly intact. Absent: motor deficit, altered mental status - Routine Psychiatric Exam Present: normal affect, cooperative. Absent: anxious, agitated Results - Labs CBC & Chem 7: 04/18/17 04:36 04/18/17 04:36 Assessment and Plan (1) Elevated troponin Current visit: Yes Status: Acute (2) Exertional dyspnea Current visit: Yes Status: Acute (3) Hypernatremia Current visit: Yes Status: Acute Assessment and Plan: Assessment: Acute AK/NSTEMI Acute respiratory failure, multifactorial Congestive heart failure - Valvular (POA), acute. Severe Aortic stenosis CAD Hypernatremia (POA) Hypertension Dementia GERD with history of PUD Essential tremor Diabetes Mellitus, Type 2 Chronic kidney disease, stage III - base GFR ~ 32; base SCr ~ 1.4-1.6. Hypothyroidism Constipation Insomnia Parkinson's disease IBS Dysphagia Plan Continue with Lasix to help motivate fluid - creatinine and BP stable. With CO2 increased, will give Diamox 500mg po x1. Continue Heparin drip. Will continue with O2 due to NSTEMI - possible wean O2 tomorrow. 2 grams magnesium given IV due to mag decreasing to 1.4 this am. Will recheck CMP and Mg in am secondary to CHF and medication use. Recheck CBC due to heparin drip. Repeat CXR for follow up. Case discussed with patient's daughter. Time spent with patient care 25 minutes. NSTEMI - troponin trending down. Medical management. Dr. Mandujano following. Notes reviewed. Coreg DC'd, avoid nitrates/BB given aortic stenosis. Dr. Mandujano had recommended transfer to [facility], but family requested conservative care, hence she remains here. Medical management will be plan of care. Heparin gtt per protocol. Continue PO ASA. Check lipids, start low dose Lipitor. <RT reported concern for TB screening given hemoptysis- this is most likely due to heparin gtt with supratherapeutic PTT. She has no other concerning sx for TB, therefore, I don't believe that there is any need to screen for this.> Continue diuretics for now. Her labs appear a bit dry, but kidney function is at baseline. Given severity of aortic stenosis, it would be prudent to keep her on the dry side. BG is controlled. Continue current insulin. Some concern for dysphagia- cont. thickened liquids, altered diet. ST following. Daughter is RN, and is planning to fly in tomorrow to see patient. Patient has significant dementia, and is a fall risk. Continue bedrest, with up to BSC and dangle at edge of bed until heparin gtt is off to avoid injury if possible. DVT Prophylaxis: SCD's, Heparin drip Resuscitation Status: Do Not Resuscitate - Time spent with patient Time with patient PN: 25 minutes - Physician Narrative Physician: Chang Julien MD Narrative: Date: 04/18/17 Time: 1420 Hospital Course Summary Disclaimer: The visit summary below is not to be considered part of the above Progress Note. Hospital Course: 04/16/17 Admit to inpatient status under the care of Dr. Guajardo. Consult Dr. Mandujano for cardiac evaluation and treatment. He saw the patient in ED and recommend initiation of heparin drip for treatment of elevated troponin x 48 hours - consult pharmacology. Will obtain echocardiogram now. Per Dr. Mandujano, Lasix 40mg IV Q8H for fluid overload. Monitor urinary output closely as well as daily weights. Will hold home RODNEY, beta-nahomy and nitro given EKG changes. Monitor blood pressure closely. Elevated troponin in ED. Monitor serial troponins. Monitor closely on telemetry with continuos pulse oximetry. Oxygen as indicated to maintain SAO2 >90%, weaning as able. Given productive cough, will obtain respiratory panel now. Continue home insulin. Monitor BGMs closely as well as for signs of hypoglycemia. History of dysphagia - carb controlled soft diet with chopped meats and nectar thickened liquids. Recheck labs in AM to monitor blood counts, electrolytes and renal function. Upon discharge, patient's care will be returned to her PCP. 04/17/17 NSTEMI- troponin trending down. Medical management. Dr. Mandujano following. Notes reviewed: Coreg discontinued; avoid nitrates/BB given aortic stenosis. Lasix decreased to 40mg IV BID. Good UOP with negative fluid balance. Cr slightly improved today from 1.7 to 1.5. Heparin gtt per protocol. Continue PO ASA. Check lipids, start low dose Lipitor. RT reported concern for TB screening given hemoptysis- this is most likely due to heparin gtt with supratherapeutic PTT. She has no other concerning sx for TB, therefore, I don't believe that there is any need to screen for this. Continue diuretics for now. Her labs appear a bit dry, but kidney function is at baseline. Given severity of aortic stenosis, it would be prudent to keep her on the dry side. BG is controlled. Continue current insulin. Some concern for dysphagia- cont. thickened liquids, altered diet. ST following. Daughter is RN, and is planning to fly in tomorrow to see patient. Patient has significant dementia, and is a fall risk. Continue bedrest, with up to BSC and dangle at edge of bed until heparin gtt is off to avoid injury if possible. 04/18/17 Continue with Lasix to help motivate fluid - creatinine and BP stable. With CO2 increased, will give Diamox 500mg po x1. Continue Heparin drip. Will continue with O2 due to NSTEMI - possible wean O2 tomorrow. 2 grams magnesium given IV due to mag decreasing to 1.4 this am.
[2017-04-18] MEDS: ATORVASTATIN 10 MG TABLET PO SCH (20:42)
[2017-04-18] MEDS: DONEPEZIL 10 MG TABLET PO SCH (20:42)
[2017-04-18] MEDS: INSULIN GLARGINE 100unit/ml INJECTION SQ SCH (20:43)
[2017-04-18] MEDS: SALINE FLUSH 10ml SYRINGE IVF PRN (21:27)
--- NOTE | 2017-04-18 21:44 | Cardiology Progress Note ---
<Inna Joe R - Last Filed: 04/18/17 21:54> Subjective Principal diagnosis: CHF, Severe , NSTEMI Interval history: CC: f/u CHF, Severe , NSTEMI Pt seen at 0810 this AM: Ms. Ron is laying in bed, tolerating laying a little flatter today as HOB is not raised as high. No SOA, no CP, c/o productive cough. Daughter at bedside, states pt just had a breathing tx. LE edema improved, pt no longer appears SOA, still on O2 at 2L with sats 96%. No wheezing today. Discussed current condition of pt with daughter. Notified Cr stable and remains at baseline and we reviewed Echo results. Pt would like to get up OOB into a chair today. She is awake and alert though still has some confusion which appears to be at her baseline. Exam Vital signs: Temperature 97.4 F 04/18/17 14:33 Pulse Rate 85 04/18/17 15:06 Respiratory Rate 20 04/18/17 20:10 Blood Pressure 138/69 04/18/17 14:33 Pulse Oximetry 94 04/18/17 14:33 Inpatient Medications: Generic Name Dose Route Start Last Admin Trade Name Freq PRN Reason Stop Dose Admin Acetaminophen 325 - 650 mg 04/16/17 18:23 Tylenol PO Q5H PRN Discomfort Albuterol/Ipratropium 3 ml 04/16/17 19:11 Duoneb AEROSOL RTQID PRN Albuterol/Ipratropium 3 ml 04/17/17 07:00 04/18/17 20:00 Duoneb AEROSOL 3 ml RTQID RADHAMES Administration Aspirin 81 mg 04/17/17 09:00 04/18/17 08:33 Ecotrin PO 81 mg DAILY RADHAMES Administration Atorvastatin Calcium 10 mg 04/17/17 21:00 04/18/17 20:42 Lipitor PO 10 mg HS RADHAMES Administration Donepezil HCl 10 mg 04/16/17 21:00 04/18/17 20:42 Aricept PO 10 mg HS RADHAMES Administration Furosemide 40 mg 04/17/17 21:00 04/18/17 20:41 Lasix IVP 40 mg Q12HR RADHAMES Administration Insulin Aspart 16 unit 04/17/17 08:00 04/18/17 16:39 Novolog SQ 16 unit TIDWM RADHAMES Administration Insulin Glargine 40 unit 04/16/17 21:00 04/18/17 20:43 Lantus SQ 40 unit HS RADHAMES Administration Lactobacillus Acidophilus 1 cap 04/17/17 09:00 04/18/17 08:32 Culturelle PO 1 cap DAILY RADHAMES Administration Levothyroxine Sodium 100 mcg 04/17/17 06:30 04/18/17 05:43 Synthroid PO 100 mcg ACB RADHAMES Administration Lorazepam 0.25 mg 04/16/17 18:30 Ativan Inj IVP Q6H PRN Morphine Sulfate 1 - 2 mg 04/16/17 18:23 Morphine Sulfate Inj IVP Q2H PRN Pain Omeprazole 20 mg 04/17/17 06:30 04/18/17 05:43 Prilosec PO 20 mg ACB RADHAMES Administration Ondansetron HCl 4 mg 04/16/17 18:23 Zofran IVP Q6H PRN Nausea &/or vomiting Pneumococcal 7-Valent Conj Vacc 0.5 ml 04/19/17 12:00 Prevnar 13 IM 04/19/17 12:01 .ONCE ONE Polyethylene Glycol 17 gm 04/17/17 09:00 04/18/17 08:35 Miralax PO Not Given DAILY RADHAMES Primidone 25 mg 04/16/17 21:00 04/18/17 20:42 Mysoline PO 25 mg BID RADHAMES Administration Senna/Docusate Sodium 1 tab 04/16/17 18:23 Senna Plus Tablet PO BID PRN Constipation Sodium Chloride 10 - 80 ml 04/16/17 16:17 04/18/17 21:27 Iv Flush IVF 20 ml PRN PRN Administration Flushing Discontinued Medications Generic Name Dose Route Start Last Admin Trade Name Freq PRN Reason Stop Dose Admin Acetazolamide 500 mg 04/18/17 14:02 04/18/17 15:57 Diamox PO 04/18/17 14:03 500 mg O ONE Administration Aspirin 324 mg 04/16/17 17:25 04/16/17 18:21 Asa PO 04/16/17 17:26 324 mg O ONE Administration Carvedilol 3.125 mg 04/17/17 08:00 04/17/17 08:27 Coreg PO 3.125 mg BIDWM RADHAMES Administration Furosemide 40 mg 04/17/17 01:00 04/17/17 08:27 Lasix IVP 40 mg Q8HR RADHAMES Administration Heparin Sodium (Beef Lung) 5,000 unit 04/16/17 18:53 04/16/17 21:13 Heparin Bolus IVP 04/16/17 18:54 5,000 unit O ONE Administration Heparin Sodium (Porcine) 1 each 04/16/17 18:28 Pharmacy Consult - Heparin MC 04/16/17 18:29 ONE TIME ONE Heparin Sodium (Porcine) 20,000 unit in 500 mls @ 21 mls/hr 04/16/17 19:00 21:15 Heparin Drip IV 04/18/17 21:15 Infused .[id number] RADHAMES Titration Protocol Magnesium Sulfate/Dextrose 1 gm in 100 mls @ 100 mls/hr 04/18/17 10:00 13:19 Mag Sulf 1gm Premix IV 04/18/17 11:59 Infused Q1H RADHAMES Infusion Pharmacy Consult 1 each 04/16/17 20:28 Pharmacy Consult - Fall Risk XX 04/16/17 20:29 ONE TIME ONE - Constitutional no acute distress - Routine HEENT Exam Eye: Present: EOMI ENT: Absent: dentition normal (Loose dentures with missing teeth) - Routine Neck Exam Present: JVD - Routine Respiratory Exam Present: decreased breath sounds, crackles (slight crackles b/l base). Absent: dyspnea, wheezes - Routine Cardiovascular Exam Present: RRR, murmur (III/), JVD - Routine Abdominal Exam Present: soft, distended - Routine Extremities Exam Present: edema (Trace to BLE), pulses intact. Absent: cyanosis - Routine Skin Exam Present: intact, warm. Absent: rash - Routine Neurological Exam Present: alert (and confused) - Routine Psychiatric Exam Present: normal affect, cooperative. Absent: normal thought process, good insight, anxious, agitated - Urinary Catheter Management Urethral Cath placed during this visit: yes Insertion date: 04/17/17 Insertion time: 09:34 Results 04/18/17 04:36 04/18/17 04:36 Coagulation 04/18/17 Range/Units 04:36 APTT 50.6 H (24-36) SEC CBC 04/18/17 Range/Units 04:36 WBC 6.0 (4.5-11.0) T/MM3 RBC 4.51 (4.00-5.20) M/MM3 Hgb 12.6 (12-16) GM/DL Hct 39.3 (36-46) % Plt Count 182 (130-400) T/MM3 Neut # (Auto) 3.0 (1.8-7.7) T/MM3 Lymph # (Auto) 2.6 (1-4.8) T/MM3 Ida # (Auto) 0.4 (0-0.8) T/MM3 Eos # (Auto) 0.1 (0-0.5) T/MM3 Baso # (Auto) 0.0 (0-0.2) T/MM3 Comprehensive Metabolic Panel 04/18/17 Range/Units 04:36 Sodium 141 (134-144) MEQ/L Potassium 3.8 (3.6-5) MEQ/L Chloride 95 L D (98-107) MEQ/L Carbon Dioxide 32 H (22-30) MEQ/L BUN 37.0 H (7-17) MG/DL Creatinine 1.5 H (0.7-1.2) mg/dL Glucose 148 H (65-110) MG/DL Calcium 10.0 (8.4-10.2) MG/DL Intake and Output 04/18/17 04/18/17 04/18/17 06:59 14:59 22:59 Intake Total 60 / 60 657.667 / 657.667 826 / 826 Output Total 1100 / 1100 800 / 800 625 / 625 Balance -1040 / -1040 -142.333 / -142.333 201 / 201 Intake: IV 417.667 / 417.667 266 / 266 Heparin Drip 20,000 unit In 500 217.667 / 217.667 266 / 266 ml @ 21 mls/hr IV .[id number] RADHAMES Rx#:[id number] MAGNESIUM SULFATE 1gm PREMIX 1 200 / 200 gm In 100 ml @ 100 mls/hr IV Q1H RADHAMES Rx#:[id number] Oral 60 / 60 240 / 240 560 / 560 Output: Urine 50 / 50 Urine Amount (Catheter) 1100 / 1100 800 / 800 575 / 575 Other: Urine Appearance Clear Clear Clear Urine Color Yellow Yellow Dark Yellow Urine Odor Normal Weight 91.9 kg Patient Weight 04/19/17 06:59 Weight 91.9 kg Assessment and Plan - Assessment and Plan (1) NSTEMI (non-ST elevated myocardial infarction) Status: Acute Troponin peaked at 1.780, trended down. EKG NSR with new ST depression. Family and pt refusing HC d/t pt's advanced age and current health. Con't ASA. Heparin gtt x48 hours, d/c today at 1900. Con't to monitor tele (2) CHF exacerbation Status: Acute CXR 04/17/2017:small left pleural effusion, trace stable right effusion. Echo 04/16/2017: Severe with a valve area of about 0.5cm2 with a normal LV function, EF 65% Cr slightly improved today from 1.7 to 1.5. 2650cc UOP. Con't current Lasix 40mg IV to BID. K+ WNL, monitor BMP and check Mag. Down approximately 10lbs from admit. Con't to monitor I&O's, wts and Lab. (3) Aortic stenosis Status: Acute Conservative management per family and pt request. con't to void BB, nitrates. D/c'd Coreg. Con't diuresis. Monitor. (4) Coronary artery disease Status: Chronic (5) Chronic kidney disease (CKD) Status: Chronic Baseline 1.4-1.6. Cr today 1.5(1.5)(1.7). BUN 37(45)(39). Con't current Lasix to 40mg IV BID. Monitor lab closely. (6) Hypernatremia Status: Acute Improved today at 141(145). Avoiding IVF 2/2 HF. Con't current Lasix. Monitor. (7) Type 2 diabetes mellitus Status: Chronic Per Primary team. (8) HTN (hypertension) Status: Chronic BP remains stable. Con't to monitor off of BB. (9) Hypothyroidism Status: Chronic Con't Levothyroxine. Primary team managing. (10) GERD (gastroesophageal reflux disease) Status: Chronic (11) Dementia Status: Chronic Con't PPI. Hospital Course Summary Disclaimer: The visit summary below is not to be considered part of the above Progress Note. Hospital Course: 04/16/17 Admit to inpatient status under the care of Dr. Guajardo. Consult Dr. Mandujano for cardiac evaluation and treatment. He saw the patient in ED and recommend initiation of heparin drip for treatment of elevated troponin x 48 hours - consult pharmacology. Will obtain echocardiogram now. Per Dr. Mandujano, Lasix 40mg IV Q8H for fluid overload. Monitor urinary output closely as well as daily weights. Will hold home RODNEY, beta-nahomy and nitro given EKG changes. Monitor blood pressure closely. Elevated troponin in ED. Monitor serial troponins. Monitor closely on telemetry with continuos pulse oximetry. Oxygen as indicated to maintain SAO2 >90%, weaning as able. Given productive cough, will obtain respiratory panel now. Continue home insulin. Monitor BGMs closely as well as for signs of hypoglycemia. History of dysphagia - carb controlled soft diet with chopped meats and nectar thickened liquids. Recheck labs in AM to monitor blood counts, electrolytes and renal function. Upon discharge, patient's care will be returned to her PCP. 04/17/17 NSTEMI- troponin trending down. Medical management. Dr. Mandujano following. Notes reviewed: Coreg discontinued; avoid nitrates/BB given aortic stenosis. Lasix decreased to 40mg IV BID. Good UOP with negative fluid balance. Cr slightly improved today from 1.7 to 1.5. Heparin gtt per protocol. Continue PO ASA. Check lipids, start low dose Lipitor. RT reported concern for TB screening given hemoptysis- this is most likely due to heparin gtt with supratherapeutic PTT. She has no other concerning sx for TB, therefore, I don't believe that there is any need to screen for this. Continue diuretics for now. Her labs appear a bit dry, but kidney function is at baseline. Given severity of aortic stenosis, it would be prudent to keep her on the dry side. BG is controlled. Continue current insulin. Some concern for dysphagia- cont. thickened liquids, altered diet. ST following. Daughter is RN, and is planning to fly in tomorrow to see patient. Patient has significant dementia, and is a fall risk. Continue bedrest, with up to BSC and dangle at edge of bed until heparin gtt is off to avoid injury if possible. 04/18/17 Continue with Lasix to help motivate fluid - creatinine and BP stable. With CO2 increased, will give Diamox 500mg po x1. Continue Heparin drip. Will continue with O2 due to NSTEMI - possible wean O2 tomorrow. 2 grams magnesium given IV due to mag decreasing to 1.4 this am. <Orion Mandujano - Last Filed: 04/22/17 13:05> Exam Vital signs: Temperature 96.7 F L 04/20/17 07:00 Pulse Rate 82 04/20/17 08:00 Respiratory Rate 20 04/20/17 09:21 Blood Pressure 118/58 04/20/17 07:00 Pulse Oximetry 94 04/20/17 09:21 Inpatient Medications: Discontinued Medications Generic Name Dose Route Start Last Admin Trade Name Freq PRN Reason Stop Dose Admin Acetaminophen 325 - 650 mg 04/16/17 18:23 04/20/17 10:27 Tylenol PO 650 mg Q5H PRN Administration Discomfort Acetazolamide 500 mg 04/18/17 14:02 04/18/17 15:57 Diamox PO 04/18/17 14:03 500 mg O ONE Administration Acetazolamide 500 mg 04/19/17 08:57 04/19/17 10:39 Diamox PO 04/19/17 08:58 500 mg O ONE Administration Albuterol/Ipratropium 3 ml 04/16/17 19:11 Duoneb AEROSOL RTQID PRN Albuterol/Ipratropium 3 ml 04/17/17 07:00 04/20/17 09:21 Duoneb AEROSOL 3 ml RTQID RADHAMES Administration Aspirin 324 mg 04/16/17 17:25 04/16/17 18:21 Asa PO 04/16/17 17:26 324 mg O ONE Administration Aspirin 81 mg 04/17/17 09:00 04/20/17 10:25 Ecotrin PO 81 mg DAILY RADHAMES Administration Atorvastatin Calcium 10 mg 04/17/17 21:00 04/19/17 20:47 Lipitor PO 10 mg HS RADHAMES Administration Carvedilol 3.125 mg 04/17/17 08:00 04/17/17 08:27 Coreg PO 3.125 mg BIDWM RADHAMES Administration Donepezil HCl 10 mg 04/16/17 21:00 04/19/17 20:47 Aricept PO 10 mg HS RADHAMES Administration Furosemide 40 mg 04/17/17 01:00 04/17/17 08:27 Lasix IVP 40 mg Q8HR RADHAMES Administration Furosemide 40 mg 04/17/17 21:00 04/19/17 10:28 Lasix IVP 40 mg Q12HR RADHAMES Administration Furosemide 40 mg 04/20/17 09:00 04/20/17 10:25 Lasix PO 40 mg DAILY RADHAMES Administration Heparin Sodium (Beef Lung) 5,000 unit 04/16/17 18:53 04/16/17 21:13 Heparin Bolus IVP 04/16/17 18:54 5,000 unit O ONE Administration Heparin Sodium (Porcine) 1 each 04/16/17 18:28 Pharmacy Consult - Heparin MC 04/16/17 18:29 ONE TIME ONE Heparin Sodium (Porcine) 5,000 units 04/19/17 21:00 04/20/17 10:26 Heparin Sq SQ 5,000 units Q12HR RADHAMES Administration Heparin Sodium (Porcine) 20,000 unit in 500 mls @ 21 mls/hr 04/16/17 19:00 21:15 Heparin Drip IV 04/18/17 21:15 Infused .[id number] [facility] Titration Protocol Magnesium Sulfate/Dextrose 1 gm in 100 mls @ 100 mls/hr 04/18/17 10:00 13:19 Mag Sulf 1gm Premix IV 04/18/17 11:59 Infused Q1H RADHAMES Infusion Insulin Aspart 16 unit 04/17/17 08:00 04/20/17 12:17 Novolog SQ 16 unit TIDWM RADHAMES Administration Insulin Glargine 40 unit 04/16/17 21:00 04/19/17 20:48 Lantus SQ 40 unit HS RADHAMES Administration Lactobacillus Acidophilus 1 cap 04/17/17 09:00 04/20/17 10:26 Culturelle PO 1 cap DAILY RADHAMES Administration Levothyroxine Sodium 100 mcg 04/17/17 06:30 04/20/17 06:02 Synthroid PO 100 mcg ACB RADHAMES Administration Lorazepam 0.25 mg 04/16/17 18:30 Ativan Inj IVP Q6H PRN Morphine Sulfate 1 - 2 mg 04/16/17 18:23 Morphine Sulfate Inj IVP Q2H PRN Pain Omeprazole 20 mg 04/17/17 06:30 04/20/17 06:02 Prilosec PO 20 mg ACB RADHAMES Administration Ondansetron HCl 4 mg 04/16/17 18:23 Zofran IVP Q6H PRN Nausea &/or vomiting Pharmacy Consult 1 each 04/16/17 20:28 Pharmacy Consult - Fall Risk XX 04/16/17 20:29 ONE TIME ONE Pneumococcal 7-Valent Conj Vacc 0.5 ml 04/19/17 12:00 04/19/17 13:58 Prevnar 13 IM 04/19/17 12:01 0.5 ml .ONCE ONE Administration Polyethylene Glycol 17 gm 04/17/17 09:00 04/20/17 10:29 Miralax PO Not Given DAILY RADHAMES Potassium Chloride 20 meq 04/20/17 08:59 04/20/17 10:24 Micro-K 10 Meq Capsule PO 04/20/17 09:00 20 meq O ONE Administration Primidone 25 mg 04/16/17 21:00 04/20/17 10:27 Mysoline PO 25 mg BID RADHAMES Administration Senna/Docusate Sodium 1 tab 04/16/17 18:23 Senna Plus Tablet PO BID PRN Constipation Sodium Chloride 10 - 80 ml 04/16/17 16:17 04/20/17 10:30 Iv Flush IVF 10 ml PRN PRN Administration Flushing - Urinary Catheter Management Urethral Cath placed during this visit: no Results 04/19/17 04:15 04/20/17 04:56 Assessment and Plan - Assessment and Plan (1) Dementia Status: Chronic (2) HTN (hypertension) Status: Chronic (3) Hypothyroidism Status: Chronic (4) Chronic kidney disease (CKD) Status: Chronic (5) Type 2 diabetes mellitus Status: Chronic (6) GERD (gastroesophageal reflux disease) Status: Chronic (7) Coronary artery disease Status: Chronic (8) Hypernatremia Status: Acute (9) CHF exacerbation Status: Acute (10) Aortic stenosis Status: Acute (11) NSTEMI (non-ST elevated myocardial infarction) Status: Acute - Attestation Attestation Narrative: 04/22/17 13:05 Recommendation After examining the patient I agree with the above assessment. I am involved in the formulation of the patient's plan of care. Hospital Course Summary Disclaimer: The visit summary below is not to be considered part of the above Progress Note.
[2017-04-19] MEDS: OMEPRAZOLE 20 MG CAPSULE PO SCH (06:08)
[2017-04-19] MEDS: LEVOTHYROXINE 100 MCG TABLET PO SCH (06:08)
[2017-04-19] MEDS: ALBUTEROL/IPRATROPIUM 2.5mg-0.5mg/3ml NEB AEROSOL SCH ×4 (07:37→20:56)
--- NOTE | 2017-04-19 08:29 | XRay Report ---
Indication: F/U Procedure: XR chest 2V: Encounter: Subsequent Comparison: 04/16/2017, 04/14/2017 Technique: AP and lateral radiographs of the chest were obtained. Findings: Lungs and airways: Normal lung volumes. Mild left basilar relaxation atelectasis. Normal pulmonary vasculature. Pleura: Improved but persistent small left greater than right pleural effusions. No pneumothorax. Heart and mediastinum: Aortic atherosclerosis. The heart is normal in size allowing for accentuation by AP technique. Osseous structures and soft tissues: No acute osseous abnormality is seen. Degenerative changes of the shoulders and thoracic spine. Impression: Improved but persistent small left greater than right pleural effusions with associated mild left basilar relaxation atelectasis. .
[2017-04-19] MEDS ORDERED: acetaZOLAMIDE 250 MG TABLET PO ONE (08:57)
[2017-04-19] MEDS: LACTOBACILLUS (15B cfu) CAPSULE PO SCH (10:27)
[2017-04-19] MEDS: PRIMIDONE 50 MG TABLET PO SCH ×2 (10:27→20:47)
[2017-04-19] MEDS: FUROSEMIDE 40 MG/4 ML INJECTION IVP SCH (10:28)
[2017-04-19] MEDS: ASPIRIN *EC* 81 MG TABLET PO SCH (10:28)
[2017-04-19] MEDS: INSULIN ASPART 100unit/ml INJECTION SQ SCH ×3 (10:29→18:19)
[2017-04-19] MEDS: POLYETHYL GLYCOL 3350 17gm PACKET PO SCH (10:30)
[2017-04-19] MEDS ORDERED: PNEUMOCOCCAL 13 VACCINE 0.5ml INJECTION IM ONE (12:00)
--- NOTE | 2017-04-19 13:45 | Progress Note ---
- Date 04/19/17 Subjective: Yoselin was resting in her recliner, dozing off. Her daughter and sister were present and they provided much of the information today. They state that she's doing well, and worked with PT today who didn't feel like she needed inpatient therapy. PT recommended ambulating in the halls. Yoselin's oxygen requirements have been decreasing. Her leg swelling has resolved. She's been eating well but they state that her abdomen is distended. Her daughter reiterates that her goal is to keep her mother's symptoms at bay and is not interested in any aggressive measures ie heart cath or procedure for . Objective Vital signs: Temperature 95.9 F L 04/19/17 07:23 Pulse Rate 81 04/19/17 08:00 Respiratory Rate 16 04/19/17 11:03 Blood Pressure 136/67 04/19/17 07:23 Pulse Oximetry 93 04/19/17 11:59 Rhythm: Normal Sinus Rhythm Cardiac Ectopy: PAC's Height/Weight/BMI: Height 1.68 m Weight 90.2 kg Body Mass Index 34.4 - Constitutional Present: no acute distress, well nourished, well developed, obese - Routine HEENT Exam Head: Present: normocephalic Eye: Absent: conjunctival icterus, scleral injection - Routine Respiratory Exam Present: decreased breath sounds (b/l bases) - Routine Cardiovascular Exam Present: RRR, S1, S2, murmur - Routine Abdominal Exam Present: soft, non tender, distended - Routine Extremities Exam Present: no edema - Routine Musculoskeletal Exam Musculoskeletal: Present: no joint swelling - Routine Skin Exam Present: intact, dry, warm - Routine Neurological Exam Absent: alert (drowsy) - Routine Psychiatric Exam Present: cooperative Results - Labs CBC & Chem 7: 04/19/17 04:15 04/19/17 04:15 Assessment and Plan (1) Elevated troponin Current visit: Yes Status: Acute (2) Exertional dyspnea Current visit: Yes Status: Acute (3) Hypernatremia Current visit: Yes Status: Acute Assessment and Plan: Assessment: Acute GA/NSTEMI Acute respiratory failure, multifactorial Congestive heart failure - Valvular (POA), acute. Severe Aortic stenosis B/L pleural effusions CAD Hypernatremia (POA) Hypomagnesemia (not POA) - resolved Hypertension Dementia GERD with history of PUD Essential tremor Diabetes Mellitus, Type 2 Chronic kidney disease, stage III - base GFR ~ 32; base SCr ~ 1.4-1.6. Hypothyroidism Constipation Insomnia Parkinson's disease IBS Dysphagia Plan Discussed labs/imaging findings in detail with Yoselin's daughter and sister -- daughter is not interested in any surgical interventions, only conservative mgt. Continue Lasix per Dr. Mandujano. Renal function stable. Coreg dc'd d/t severe (also need to avoid nitrates). CXR personally reviewed - b/l pleural effusions noted. Work on weaning off oxygen; will obtain overnight ox. Heparin gtt dc'd. Start bladder retraining and DC Mcgill in am. Mg improved to 2.1. Discussed with Dr. Julien. DVT Prophylaxis: SCD's GI Prophylaxis: other Resuscitation Status: Do Not Resuscitate - Time spent with patient Time with patient PN: 25 minutes - Physician Narrative Physician: Chang Julien MD Narrative: Date: 04/19/17 Time: 1724 Have independently interviewed and examined pt. Chart reviewed. Case discussed with CM, my SYSTEMS DESIGNER, and family. Care plan developed with my supervision; agree with above. Doing okay today. Breathing stable. Did work with PT. Eating well. No having pains. Lungs: decreased with basilar blunting; no distress on RA CV: regular AB: soft nt Plan: Lasix decreased to 40mg orally daily. Maintaining saturations on RA-will check overnight oximetry. Increase activities with therapy. Possible discharge tomorrow if continues to do well. Hospital Course Summary Disclaimer: The visit summary below is not to be considered part of the above Progress Note. Hospital Course: 04/16/17 Admit to inpatient status under the care of Dr. Guajardo. Consult Dr. Mandujano for cardiac evaluation and treatment. He saw the patient in ED and recommend initiation of heparin drip for treatment of elevated troponin x 48 hours - consult pharmacology. Will obtain echocardiogram now. Per Dr. Mandujano, Lasix 40mg IV Q8H for fluid overload. Monitor urinary output closely as well as daily weights. Will hold home RODNEY, beta-nahomy and nitro given EKG changes. Monitor blood pressure closely. Elevated troponin in ED. Monitor serial troponins. Monitor closely on telemetry with continuos pulse oximetry. Oxygen as indicated to maintain SAO2 >90%, weaning as able. Given productive cough, will obtain respiratory panel now. Continue home insulin. Monitor BGMs closely as well as for signs of hypoglycemia. History of dysphagia - carb controlled soft diet with chopped meats and nectar thickened liquids. Recheck labs in AM to monitor blood counts, electrolytes and renal function. Upon discharge, patient's care will be returned to her PCP. 04/17/17 NSTEMI- troponin trending down. Medical management. Dr. Mandujano following. Notes reviewed: Coreg discontinued; avoid nitrates/BB given aortic stenosis. Lasix decreased to 40mg IV BID. Good UOP with negative fluid balance. Cr slightly improved today from 1.7 to 1.5. Heparin gtt per protocol. Continue PO ASA. Check lipids, start low dose Lipitor. RT reported concern for TB screening given hemoptysis- this is most likely due to heparin gtt with supratherapeutic PTT. She has no other concerning sx for TB, therefore, I don't believe that there is any need to screen for this. Continue diuretics for now. Her labs appear a bit dry, but kidney function is at baseline. Given severity of aortic stenosis, it would be prudent to keep her on the dry side. BG is controlled. Continue current insulin. Some concern for dysphagia- cont. thickened liquids, altered diet. ST following. Daughter is RN, and is planning to fly in tomorrow to see patient. Patient has significant dementia, and is a fall risk. Continue bedrest, with up to BSC and dangle at edge of bed until heparin gtt is off to avoid injury if possible. 04/18/17 Continue with Lasix to help motivate fluid - creatinine and BP stable. With CO2 increased, will give Diamox 500mg po x1. Continue Heparin drip. Will continue with O2 due to NSTEMI - possible wean O2 tomorrow. 2 grams magnesium given IV due to mag decreasing to 1.4 this am. 04/19/17 Discussed labs/imaging findings in detail with Yoselin's daughter and sister -- daughter is not interested in any surgical interventions, only conservative mgt. Continue Lasix per Dr. Mandujano - change to 40mg orally daily. Renal function stable. Coreg dc'd d/t severe (also need to avoid nitrates). CXR personally reviewed - b/l pleural effusions noted. Work on weaning off oxygen; will obtain overnight ox. Heparin gtt dc'd. Start bladder retraining and DC Mcgill in am. Mg improved to 2.1.
--- NOTE | 2017-04-19 15:18 | Cardiology Progress Note ---
<Glory Rhodes M - Last Filed: 04/20/17 11:38> Subjective Principal diagnosis: CHF, Severe , NSTEMI Interval history: Yoselin is seen in follow up for CHF, Severe , NSTEMI. She is in the recliner eating her supper, many family members at the bedside, including daughter from [place]. No SOA, no chest pain, c/o productive cough. Exam Vital signs: Temperature 95.9 F L 04/19/17 07:23 Pulse Rate 81 04/19/17 08:00 Respiratory Rate 16 04/19/17 11:03 Blood Pressure 136/67 04/19/17 07:23 Pulse Oximetry 94 04/19/17 14:32 Inpatient Medications: Generic Name Dose Route Start Last Admin Trade Name Freq PRN Reason Stop Dose Admin Acetaminophen 325 - 650 mg 04/16/17 18:23 Tylenol PO Q5H PRN Discomfort Albuterol/Ipratropium 3 ml 04/16/17 19:11 Duoneb AEROSOL RTQID PRN Albuterol/Ipratropium 3 ml 04/17/17 07:00 04/19/17 11:03 Duoneb AEROSOL 3 ml RTQID [facility] Administration Aspirin 81 mg 04/17/17 09:00 04/19/17 10:28 Ecotrin PO 81 mg DAILY [facility] Administration Atorvastatin Calcium 10 mg 04/17/17 21:00 04/18/17 20:42 Lipitor PO 10 mg HS [facility] Administration Donepezil HCl 10 mg 04/16/17 21:00 04/18/17 20:42 Aricept PO 10 mg HS [facility] Administration Furosemide 40 mg 04/17/17 21:00 04/19/17 10:28 Lasix IVP 40 mg Q12HR [facility] Administration Insulin Aspart 16 unit 04/17/17 08:00 04/19/17 13:57 Novolog SQ 16 unit TIDWM [facility] Administration Insulin Glargine 40 unit 04/16/17 21:00 04/18/17 20:43 Lantus SQ 40 unit HS [facility] Administration Lactobacillus Acidophilus 1 cap 04/17/17 09:00 04/19/17 10:27 Culturelle PO 1 cap DAILY [facility] Administration Levothyroxine Sodium 100 mcg 04/17/17 06:30 04/19/17 06:08 Synthroid PO 100 mcg ACB [facility] Administration Lorazepam 0.25 mg 04/16/17 18:30 Ativan Inj IVP Q6H PRN Morphine Sulfate 1 - 2 mg 04/16/17 18:23 Morphine Sulfate Inj IVP Q2H PRN Pain Omeprazole 20 mg 04/17/17 06:30 04/19/17 06:08 Prilosec PO 20 mg ACB [facility] Administration Ondansetron HCl 4 mg 04/16/17 18:23 Zofran IVP Q6H PRN Nausea &/or vomiting Polyethylene Glycol 17 gm 04/17/17 09:00 04/19/17 10:30 Miralax PO Not Given DAILY [facility] Primidone 25 mg 04/16/17 21:00 04/19/17 10:27 Mysoline PO 25 mg BID [facility] Administration Senna/Docusate Sodium 1 tab 04/16/17 18:23 Senna Plus Tablet PO BID PRN Constipation Sodium Chloride 10 - 80 ml 04/16/17 16:17 04/18/17 21:27 Iv Flush IVF 20 ml PRN PRN Administration Flushing Discontinued Medications Generic Name Dose Route Start Last Admin Trade Name Freq PRN Reason Stop Dose Admin Acetazolamide 500 mg 04/18/17 14:02 04/18/17 15:57 Diamox PO 04/18/17 14:03 500 mg O ONE Administration Acetazolamide 500 mg 04/19/17 08:57 04/19/17 10:39 Diamox PO 04/19/17 08:58 500 mg O ONE Administration Aspirin 324 mg 04/16/17 17:25 04/16/17 18:21 Asa PO 04/16/17 17:26 324 mg O ONE Administration Carvedilol 3.125 mg 04/17/17 08:00 04/17/17 08:27 Coreg PO 3.125 mg BIDWM RAD[facility]AMES Administration Furosemide 40 mg 04/17/17 01:00 04/17/17 08:27 Lasix IVP 40 mg Q8HR [facility] Administration Heparin Sodium (Beef Lung) 5,000 unit 04/16/17 18:53 04/16/17 21:13 Heparin Bolus IVP 04/16/17 18:54 5,000 unit O ONE Administration Heparin Sodium (Porcine) 1 each 04/16/17 18:28 Pharmacy Consult - Heparin MC 04/16/17 18:29 ONE TIME ONE Heparin Sodium (Porcine) 20,000 unit in 500 mls @ 21 mls/hr 04/16/17 19:00 21:15 Heparin Drip IV 04/18/17 21:15 Infused .[id number] [facility] Titration Protocol Magnesium Sulfate/Dextrose 1 gm in 100 mls @ 100 mls/hr 04/18/17 10:00 13:19 Mag Sulf 1gm Premix IV 04/18/17 11:59 Infused Q1H [facility] Infusion Pharmacy Consult 1 each 04/16/17 20:28 Pharmacy Consult - Fall Risk XX 04/16/17 20:29 ONE TIME ONE Pneumococcal 7-Valent Conj Vacc 0.5 ml 04/19/17 12:00 04/19/17 13:58 Prevnar 13 IM 04/19/17 12:01 0.5 ml .ONCE ONE Administration - Constitutional no acute distress, cooperative - Routine HEENT Exam Head: Present: normocephalic ENT: Present: mucous membranes moist - Routine Neck Exam Absent: JVD, carotid bruit - Routine Chest/Breast/Axilla Exam Chest wall: Absent: tenderness - Routine Respiratory Exam Present: rales (bibasilar). Absent: dyspnea, CTA bilaterally - Routine Cardiovascular Exam Present: RRR, murmur (III/). Absent: JVD - Routine Abdominal Exam Present: soft, normoactive bowel sounds - Routine Extremities Exam Present: edema - Routine Skin Exam Present: intact, dry, warm - Routine Neurological Exam Present: alert. Absent: oriented X3, hearing grossly intact - Routine Psychiatric Exam Present: normal affect. Absent: normal thought process - Additional findings Additional findings: Acetaminophen (Tylenol) 325 - 650 mg PO Q5H PRN PRN Reason: Discomfort Last Admin: 04/20/17 10:27 Dose: 650 mg Albuterol/Ipratropium (Duoneb) 3 ml AEROSOL RTQID PRN Albuterol/Ipratropium (Duoneb) 3 ml AEROSOL RTQID [facility] Last Admin: 04/20/17 09:21 Dose: 3 ml Aspirin (Ecotrin) 81 mg PO DAILY [facility] Last Admin: 04/20/17 10:25 Dose: 81 mg Atorvastatin Calcium (Lipitor) 10 mg PO HS [facility] Last Admin: 04/19/17 20:47 Dose: 10 mg Donepezil HCl (Aricept) 10 mg PO HS [facility] Last Admin: 04/19/17 20:47 Dose: 10 mg Furosemide (Lasix) 40 mg PO DAILY [facility] Last Admin: 04/20/17 10:25 Dose: 40 mg Heparin Sodium (Porcine) (Heparin Sq) 5,000 units SQ Q12HR [facility] Last Admin: 04/20/17 10:26 Dose: 5,000 units Insulin Aspart (Novolog) 16 unit SQ TIDWM [facility] Last Admin: 04/20/17 09:57 Dose: 16 unit Insulin Glargine (Lantus) 40 unit SQ HS [facility] Last Admin: 04/19/17 20:48 Dose: 40 unit Lactobacillus Acidophilus (Culturelle) 1 cap PO DAILY [facility] Last Admin: 04/20/17 10:26 Dose: 1 cap Levothyroxine Sodium (Synthroid) 100 mcg PO ACB [facility] Last Admin: 04/20/17 06:02 Dose: 100 mcg Lorazepam (Ativan Inj) 0.25 mg IVP Q6H PRN Morphine Sulfate (Morphine Sulfate Inj) 1 - 2 mg IVP Q2H PRN PRN Reason: Pain Omeprazole (Prilosec) 20 mg PO ACB [facility] Last Admin: 04/20/17 06:02 Dose: 20 mg Ondansetron HCl (Zofran) 4 mg IVP Q6H PRN PRN Reason: Nausea &/or vomiting Polyethylene Glycol (Miralax) 17 gm PO DAILY [facility] Last Admin: 04/20/17 10:29 Dose: Not Given Primidone (Mysoline) 25 mg PO BID [facility] Last Admin: 04/20/17 10:27 Dose: 25 mg Senna/Docusate Sodium (Senna Plus Tablet) 1 tab PO BID PRN PRN Reason: Constipation Sodium Chloride (Iv Flush) 10 - 80 ml IVF PRN PRN PRN Reason: Flushing Last Admin: 04/20/17 10:30 Dose: 10 ml - Urinary Catheter Management Urethral Cath placed during this visit: yes Insertion date: 04/17/17 Insertion time: 09:34 Results 04/19/17 04:15 04/20/17 04:56 Cardiac Enzymes 04/19/17 Range/Units 04:15 AST 24 (14-36) U/L CBC 04/19/17 Range/Units 04:15 WBC 6.5 (4.5-11.0) T/MM3 RBC 4.55 (4.00-5.20) M/MM3 Hgb 12.6 (12-16) GM/DL Hct 39.8 (36-46) % Plt Count 176 (130-400) T/MM3 Comprehensive Metabolic Panel 04/19/17 Range/Units 04:15 Sodium 137 (134-144) MEQ/L Potassium 3.9 (3.6-5) MEQ/L Chloride 91 L (98-107) MEQ/L Carbon Dioxide 31 H (22-30) MEQ/L BUN 36.0 H (7-17) MG/DL Creatinine 1.6 H D (0.7-1.2) mg/dL Glucose 140 H (65-110) MG/DL Calcium 9.6 (8.4-10.2) MG/DL AST 24 (14-36) U/L ALT 24 (9-52) U/L Alkaline Phosphatase 71 (38-126) U/L Total Protein 6.9 (6.3-8.2) G/DL Albumin 3.9 (3.5-5.0) g/dL Intake and Output 04/19/17 04/19/17 04/19/17 06:59 14:59 22:59 Intake Total 440 / 440 Output Total 1000 / 1000 975 / 975 Balance -1000 / -1000 -535 / -535 Intake: Oral 440 / 440 Output: Urine Amount (Catheter) 1000 / 1000 975 / 975 Other: Urine Appearance Clear Clear Urine Color Straw Yellow Weight 198 lb 13.711 oz Patient Weight 04/20/17 06:59 Weight 198 lb 13.711 oz - Imaging and Cardiology Cardiac cath: report reviewed EKG results: image reviewed Imaging & Cardiology Narrative: Date of Exam: 04/19/17 Ordering Provider: Chang Julien MD Type of Exam(s): XR chest 2V Reason for Exam(s): F/U Indication: F/U Procedure: XR chest 2V: Encounter: Subsequent Comparison: 04/16/2017, 04/14/2017 Technique: AP and lateral radiographs of the chest were obtained. Findings: Lungs and airways: Normal lung volumes. Mild left basilar relaxation atelectasis. Normal pulmonary vasculature. Pleura: Improved but persistent small left greater than right pleural effusions. No pneumothorax. Heart and mediastinum: Aortic atherosclerosis. The heart is normal in size allowing for accentuation by AP technique. Osseous structures and soft tissues: No acute osseous abnormality is seen. Degenerative changes of the shoulders and thoracic spine. Impression: Improved but persistent small left greater than right pleural effusions with associated mild left basilar relaxation atelectasis. 04/20/17 11:43 04/20/17 11:43 Date of Exam: 04/16/17 Type of Exam(s): US echo doppler complete DATE OF PROCEDURE 04/16/2017 This is a two-dimensional echo with spectral Doppler, color-flow and M-mode. It was obtained in a patient with murmur and congestive heart failure. Left atrium is dilated. Left ventricular end-diastolic dimension is normal. Left ventricular wall thickness is increased. LV systolic function is normal with ejection fraction of about 65%. Right atrium is normal. Right ventricle is normal. Aortic root dimension is normal. Mitral valve is sclerotic with mitral annulus calcification. There is no mitral stenosis. Mild mitral regurgitation is present. Aortic valve is calcified and restriction on opening motion is present. Transaortic velocities are increased with a velocity of 4.88 m/sec with a peak gradient of 95 and mean gradient of 68. Aortic valve area is about 0.5 cm2. There is no aortic insufficiency. Trace of tricuspid regurgitation is present with estimated pulmonary artery systolic pressure of 28. Pulmonary valve shows trace of pulmonary insufficiency. There is no pericardial effusion. IMPRESSION 1. Normal LV systolic function with ejection fraction of 65%. 2. Concentric left ventricular hypertrophy. 3. Mitral annulus calcification with mitral sclerosis and mild mitral regurgitation. 4. Severe aortic stenosis with a valve area of 0.5 cm2. 5. Trace of tricuspid regurgitation with normal estimated pulmonary artery systolic pressure of 30. 6. Trace of pulmonary insufficiency. 7. Left atrial dilation. Assessment and Plan - Assessment and Plan (1) Dementia Status: Chronic (2) HTN (hypertension) Status: Chronic (3) Hypothyroidism Status: Chronic (4) Chronic kidney disease (CKD) Status: Chronic (5) Type 2 diabetes mellitus Status: Chronic (6) GERD (gastroesophageal reflux disease) Status: Chronic (7) Coronary artery disease Status: Chronic (8) Hypernatremia Status: Acute (9) CHF exacerbation Status: Acute (10) Aortic stenosis Status: Acute (11) NSTEMI (non-ST elevated myocardial infarction) Status: Acute - Assessment and Plan 04/17/17 NSTEMI (non-ST elevated myocardial infarction) - Troponin peaked at 1.780, trended down. - EKG NSR with new ST depression. - Family and pt refusing HC. - Continue ASA. - Heparin gtt x48 hours. - Monitor tele. CHF exacerbation - CXR shows small left pleural effusion, trace stable right effusion. - Echo 04/16/2017: Severe with a valve area of about 0.5cm2 with a normal LV function, EF 65% - Cr slightly improved today from 1.7 to 1.5. - Good UOP with negative fluid balance. - Decrease Lasix 40mg IV to BID. - K+ WNL, monitor BMP and Mag. - Con't to monitor I&O's and Lab. Aortic stenosis - Conservative management per family and pt request. - Avoid BB, nitrates. - D/C'd Coreg. - Monitor. Coronary artery disease - Continue ASA. Chronic kidney disease (CKD) - Baseline 1.4-1.6. - Cr today 1.5 (1.7). - Decreasing Lasix to 40mg IV BID. - Monitor lab closely. Hypernatremia - Na+145 today (149) - Avoiding IVF. - Continue to monitor with IV Lasix. Type 2 diabetes mellitus - Per Primary team. HTN - BP stable. - Monitor off of BB. Hypothyroidism - Continue Levothyroxine. - Primary team managing. GERD - Continue PPI. Dementia - Primary managing. 04/19/17 - Change Lasix to 40mg po daily - Heparin 5000units SQ Q12hrs - BNP in am Hospital Course Summary Disclaimer: The visit summary below is not to be considered part of the above Progress Note. Hospital Course: 04/16/17 Admit to inpatient status under the care of Dr. Guajardo. Consult Dr. Mandujano for cardiac evaluation and treatment. He saw the patient in ED and recommend initiation of heparin drip for treatment of elevated troponin x 48 hours - consult pharmacology. Will obtain echocardiogram now. Per Dr. Mandujano, Lasix 40mg IV Q8H for fluid overload. Monitor urinary output closely as well as daily weights. Will hold home RODNEY, beta-nahomy and nitro given EKG changes. Monitor blood pressure closely. Elevated troponin in ED. Monitor serial troponins. Monitor closely on telemetry with continuos pulse oximetry. Oxygen as indicated to maintain SAO2 >90%, weaning as able. Given productive cough, will obtain respiratory panel now. Continue home insulin. Monitor BGMs closely as well as for signs of hypoglycemia. History of dysphagia - carb controlled soft diet with chopped meats and nectar thickened liquids. Recheck labs in AM to monitor blood counts, electrolytes and renal function. Upon discharge, patient's care will be returned to her PCP. 04/17/17 NSTEMI- troponin trending down. Medical management. Dr. Mandujano following. Notes reviewed: Coreg discontinued; avoid nitrates/BB given aortic stenosis. Lasix decreased to 40mg IV BID. Good UOP with negative fluid balance. Cr slightly improved today from 1.7 to 1.5. Heparin gtt per protocol. Continue PO ASA. Check lipids, start low dose Lipitor. RT reported concern for TB screening given hemoptysis- this is most likely due to heparin gtt with supratherapeutic PTT. She has no other concerning sx for TB, therefore, I don't believe that there is any need to screen for this. Continue diuretics for now. Her labs appear a bit dry, but kidney function is at baseline. Given severity of aortic stenosis, it would be prudent to keep her on the dry side. BG is controlled. Continue current insulin. Some concern for dysphagia- cont. thickened liquids, altered diet. ST following. Daughter is RN, and is planning to fly in tomorrow to see patient. Patient has significant dementia, and is a fall risk. Continue bedrest, with up to BSC and dangle at edge of bed until heparin gtt is off to avoid injury if possible. 04/18/17 Continue with Lasix to help motivate fluid - creatinine and BP stable. With CO2 increased, will give Diamox 500mg po x1. Continue Heparin drip. Will continue with O2 due to NSTEMI - possible wean O2 tomorrow. 2 grams magnesium given IV due to mag decreasing to 1.4 this am. 04/19/17 Discussed labs/imaging findings in detail with Yoselin's daughter and sister -- daughter is not interested in any surgical interventions, only conservative mgt. Continue Lasix per Dr. Mandujano. Renal function stable. Coreg dc'd d/t severe (also need to avoid nitrates). CXR personally reviewed - b/l pleural effusions noted. Work on weaning off oxygen; will obtain overnight ox. Heparin gtt dc'd. Start bladder retraining and DC Mcgill in am. Mg improved to 2.1. <Orion Mandujano - Last Filed: 04/26/17 16:48> Exam Vital signs: Temperature 96.7 F L 04/20/17 07:00 Pulse Rate 82 04/20/17 08:00 Respiratory Rate 20 04/20/17 09:21 Blood Pressure 118/58 04/20/17 07:00 Pulse Oximetry 94 04/20/17 09:21 Inpatient Medications: Discontinued Medications Generic Name Dose Route Start Last Admin Trade Name Freq PRN Reason Stop Dose Admin Acetaminophen 325 - 650 mg 04/16/17 18:23 04/20/17 10:27 Tylenol PO 650 mg Q5H PRN Administration Discomfort Acetazolamide 500 mg 04/18/17 14:02 04/18/17 15:57 Diamox PO 04/18/17 14:03 500 mg O ONE Administration Acetazolamide 500 mg 04/19/17 08:57 04/19/17 10:39 Diamox PO 04/19/17 08:58 500 mg O ONE Administration Albuterol/Ipratropium 3 ml 04/16/17 19:11 Duoneb AEROSOL RTQID PRN Albuterol/Ipratropium 3 ml 04/17/17 07:00 04/20/17 09:21 Duoneb AEROSOL 3 ml RTQID [facility] Administration Aspirin 324 mg 04/16/17 17:25 04/16/17 18:21 Asa PO 04/16/17 17:26 324 mg O ONE Administration Aspirin 81 mg 04/17/17 09:00 04/20/17 10:25 Ecotrin PO 81 mg DAILY [facility] Administration Atorvastatin Calcium 10 mg 04/17/17 21:00 04/19/17 20:47 Lipitor PO 10 mg HS [facility] Administration Carvedilol 3.125 mg 04/17/17 08:00 04/17/17 08:27 Coreg PO 3.125 mg BIDWM [facility] Administration Donepezil HCl 10 mg 04/16/17 21:00 04/19/17 20:47 Aricept PO 10 mg HS [facility] Administration Furosemide 40 mg 04/17/17 01:00 04/17/17 08:27 Lasix IVP 40 mg Q8HR [facility] Administration Furosemide 40 mg 04/17/17 21:00 04/19/17 10:28 Lasix IVP 40 mg Q12HR [facility] Administration Furosemide 40 mg 04/20/17 09:00 04/20/17 10:25 Lasix PO 40 mg DAILY [facility] Administration Heparin Sodium (Beef Lung) 5,000 unit 04/16/17 18:53 04/16/17 21:13 Heparin Bolus IVP 04/16/17 18:54 5,000 unit O ONE Administration Heparin Sodium (Porcine) 1 each 04/16/17 18:28 Pharmacy Consult - Heparin MC 04/16/17 18:29 ONE TIME ONE Heparin Sodium (Porcine) 5,000 units 04/19/17 21:00 04/20/17 10:26 Heparin Sq SQ 5,000 units Q12HR [facility] Administration Heparin Sodium (Porcine) 20,000 unit in 500 mls @ 21 mls/hr 04/16/17 19:00 21:15 Heparin Drip IV 04/18/17 21:15 Infused .[id number] [facility] Titration Protocol Magnesium Sulfate/Dextrose 1 gm in 100 mls @ 100 mls/hr 04/18/17 10:00 13:19 Mag Sulf 1gm Premix IV 04/18/17 11:59 Infused Q1H [facility] Infusion Insulin Aspart 16 unit 04/17/17 08:00 04/20/17 12:17 Novolog SQ 16 unit TIDWM [facility] Administration Insulin Glargine 40 unit 04/16/17 21:00 04/19/17 20:48 Lantus SQ 40 unit HS [facility] Administration Lactobacillus Acidophilus 1 cap 04/17/17 09:00 04/20/17 10:26 Culturelle PO 1 cap DAILY [facility] Administration Levothyroxine Sodium 100 mcg 04/17/17 06:30 04/20/17 06:02 Synthroid PO 100 mcg ACB [facility] Administration Lorazepam 0.25 mg 04/16/17 18:30 Ativan Inj IVP Q6H PRN Morphine Sulfate 1 - 2 mg 04/16/17 18:23 Morphine Sulfate Inj IVP Q2H PRN Pain Omeprazole 20 mg 04/17/17 06:30 04/20/17 06:02 Prilosec PO 20 mg ACB [facility] Administration Ondansetron HCl 4 mg 04/16/17 18:23 Zofran IVP Q6H PRN Nausea &/or vomiting Pharmacy Consult 1 each 04/16/17 20:28 Pharmacy Consult - Fall Risk XX 04/16/17 20:29 ONE TIME ONE Pneumococcal 7-Valent Conj Vacc 0.5 ml 04/19/17 12:00 04/19/17 13:58 Prevnar 13 IM 04/19/17 12:01 0.5 ml .ONCE ONE Administration Polyethylene Glycol 17 gm 04/17/17 09:00 04/20/17 10:29 Miralax PO Not Given DAILY [facility] Potassium Chloride 20 meq 04/20/17 08:59 04/20/17 10:24 Micro-K 10 Meq Capsule PO 04/20/17 09:00 20 meq O ONE Administration Primidone 25 mg 04/16/17 21:00 04/20/17 10:27 Mysoline PO 25 mg BID [facility] Administration Senna/Docusate Sodium 1 tab 04/16/17 18:23 Senna Plus Tablet PO BID PRN Constipation Sodium Chloride 10 - 80 ml 04/16/17 16:17 04/20/17 10:30 Iv Flush IVF 10 ml PRN PRN Administration Flushing - Urinary Catheter Management Urethral Cath placed during this visit: no Results 04/19/17 04:15 04/20/17 04:56 Assessment and Plan - Assessment and Plan (1) Dementia Status: Chronic (2) HTN (hypertension) Status: Chronic (3) Hypothyroidism Status: Chronic (4) Chronic kidney disease (CKD) Status: Chronic (5) Type 2 diabetes mellitus Status: Chronic (6) GERD (gastroesophageal reflux disease) Status: Chronic (7) Coronary artery disease Status: Chronic (8) Hypernatremia Status: Acute (9) CHF exacerbation Status: Acute (10) Aortic stenosis Status: Acute (11) NSTEMI (non-ST elevated myocardial infarction) Status: Acute - Attestation Attestation Narrative: 04/26/17 16:48 Recommendation After examining the patient I agree with the above assessment. I am involved in the formulation of the patient's plan of care. Hospital Course Summary Disclaimer: The visit summary below is not to be considered part of the above Progress Note.
[2017-04-19] MEDS: ACETAMINOPHEN 325 MG TABLET PO PRN (15:23)
[2017-04-19] MEDS ORDERED: PNEUMOCOCCAL VAC ADMIN CHARGE INJ ONE (19:00)
[2017-04-19] MEDS: ATORVASTATIN 10 MG TABLET PO SCH (20:47)
[2017-04-19] MEDS: DONEPEZIL 10 MG TABLET PO SCH (20:47)
[2017-04-19] MEDS: HEPARIN SUB-Q 5,000units/0.5ml INJECTION SQ SCH (20:47)
[2017-04-19] MEDS: INSULIN GLARGINE 100unit/ml INJECTION SQ SCH (20:48)
[2017-04-19] MEDS: SALINE FLUSH 10ml SYRINGE IVF PRN (20:49)
[2017-04-20] MEDS: LEVOTHYROXINE 100 MCG TABLET PO SCH (06:02)
[2017-04-20] MEDS: OMEPRAZOLE 20 MG CAPSULE PO SCH (06:02)
[2017-04-20 07:33] VITALS: BP 118/58; TEMP 96.7
[2017-04-20] MEDS ORDERED: FUROSEMIDE 40 MG TABLET PO SCH (09:00)
[2017-04-20] MEDS: ALBUTEROL/IPRATROPIUM 2.5mg-0.5mg/3ml NEB AEROSOL SCH (09:21)
[2017-04-20 09:31] VITALS: RESP 20; O2SAT 94
[2017-04-20] MEDS: INSULIN ASPART 100unit/ml INJECTION SQ SCH ×2 (09:57→12:17)
--- NOTE | 2017-04-20 10:23 | Discharge Summary ---
Discharge Information Date of admission: 04/16/17 17:47 Anticipated date of discharge: 04/20/17 Attending Physician: Chang Julien MD Primary care physician: Rohan Schuster MD Consults: Consulting Provider: Orion Mandujano Reason For Exam: CHF, st depression - Discharge Diagnosis (1) Elevated troponin Status: Acute (2) Hypernatremia Status: Acute DISCHARGE DIAGNOSES NSTEMI Acute respiratory failure, multifactorial Congestive heart failure - Valvular Severe Aortic stenosis B/L pleural effusions Hypernatremia (POA) - RESOLVED Hypomagnesemia (not POA) - RESOLVED Hypokalemia (not POA), K 3.4 on day of discharge Nocturnal hypoxia requiring 3L HS CHRONIC CONDITIONS CAD Hypertension Dementia GERD with history of PUD Essential tremor Diabetes Mellitus, Type 2 Chronic kidney disease, stage III - base GFR ~ 32; base SCr ~ 1.4-1.6. Hypothyroidism Constipation Insomnia Parkinson's disease IBS Dysphagia - Procedures Procedures: VENTURA catheter 04/16/17-04/20/17 - Laboratory Labs: 04/19/17 04:15 04/20/17 04:56 - Radiology Radiology: Date of Exam: 04/16/17 Procedure: XR chest 1V: Findings: Small left pleural effusion is similar to the prior study. Trace right effusion is unchanged. No pneumothorax. Continued compressive atelectasis in the left lower lobe. Heart size and mediastinal contours are stable. Pulmonary vascularity appears normal. IMPRESSION: Stable small effusions. Date of Exam: 04/19/17 Procedure: XR chest 2V: Findings: Lungs and airways: Normal lung volumes. Mild left basilar relaxation atelectasis. Normal pulmonary vasculature. Pleura: Improved but persistent small left greater than right pleural effusions. No pneumothorax. Heart and mediastinum: Aortic atherosclerosis. The heart is normal in size allowing for accentuation by AP technique. Osseous structures and soft tissues: No acute osseous abnormality is seen. Degenerative changes of the shoulders and thoracic spine. IMPRESSION: Improved but persistent small left greater than right pleural effusions with associated mild left basilar relaxation atelectasis. Date of Exam: 04/16/17 Type of Exam(s): US echo doppler complete This is a two-dimensional echo with spectral Doppler, color-flow and M-mode. It was obtained in a patient with murmur and congestive heart failure. Left atrium is dilated. Left ventricular end-diastolic dimension is normal. Left ventricular wall thickness is increased. LV systolic function is normal with ejection fraction of about 65%. Right atrium is normal. Right ventricle is normal. Aortic root dimension is normal. Mitral valve is sclerotic with mitral annulus calcification. There is no mitral stenosis. Mild mitral regurgitation is present. Aortic valve is calcified and restriction on opening motion is present. Transaortic velocities are increased with a velocity of 4.88 m/sec with a peak gradient of 95 and mean gradient of 68. Aortic valve area is about 0.5 cm2. There is no aortic insufficiency. Trace of tricuspid regurgitation is present with estimated pulmonary artery systolic pressure of 28. Pulmonary valve shows trace of pulmonary insufficiency. There is no pericardial effusion. IMPRESSION 1. Normal LV systolic function with ejection fraction of 65%. 2. Concentric left ventricular hypertrophy. 3. Mitral annulus calcification with mitral sclerosis and mild mitral regurgitation. 4. Severe aortic stenosis with a valve area of 0.5 cm2. 5. Trace of tricuspid regurgitation with normal estimated pulmonary artery systolic pressure of 30. 6. Trace of pulmonary insufficiency. 7. Left atrial dilation. History of Present Illness HPI: Yoselin Ron is a pleasantly confused patient of Dr. Schuster'sylvia who resides at [facility]. She is seen in the presence of her sister, [place], who contributes significantly to Yoselin's history as she has dementia. Prior medical records, ED records, nursing notes and limited records from [facility] were all extensively reviewed and also contribute to the history. On 04/14 she was seen by Jasmin Monteiro APRN with Dr. Schuster, for increased shortness of breath and reported hypoxia at 88-90% on room air. At that time, she also complained of orthopnea and increased dyspnea with exertion. She reportedly stated that she didn't feel well but was unable to specify why. Exam revealed ~ 5 pound weight gain over a week as well as increased lower extremity edema, concerning for fluid overload secondary to CHF. She was started on Lasix 20 BID x 1 week with the intention of reducing the dose after a week to 20mg daily. She was also started on supplemental potassium 20 mEq daily at that time. CXR was obtained as an outpatient and revealed small pleural effusion though to be mild vascular or congestive failure with possibility of underlying left lower lobe pneumonia. She does not appear that she was not started on an antibiotic at that time as she was afebrile. She was seen again by her PCP on 04/16/17 with reports of increased oxygen demands and referred to [facility] where she was seen and thought to be in heart failure. She initially was on 10L non-rebreather but was able to be weaned to room air after receiving Lasix 40 IV. Labs at that time revealed stable BMP, mild hypernatremia (Na 145) and SCr 1.6. She has a known history of stage III chronic kidney disease. Review of prior labs indicates baseline GFR ~32 and baseline SCr ~1.4-1.6. At that time she was also noted to have a UTI which cultures revealed was secondary to E. coli. She was treated in the ED with monuril x 1 dose and discharged back to [facility]. Family reports that this morning, 04/16/17, she started to again have increased shortness of breath with wheezing and productive cough of yellow sputum. She reportedly had to sleep in her recliner due to her orthopnea and decreased oxygenation in the 80's when she would lay down. She returned to the ED for re-evaluation. Initial EKG revealed concerns for t-wave depression and changes. Dr. Mandujano, her professional benefits sales consultant, was consulted and saw her in the ED, recommending transfer to [place] for possible heart cath. She and her family refused transfer, requesting to stay at [facility] for conservation treatment. Dr. Guajardo was consulted and she was accepted into impatient status for further evaluation, close cardiac and respiratory monitoring, respiratory cares and cardiac evaluation. Her length of stays is expected to exceed more than 2 over nights. She is seen in the ED, with family at the bedside. She denies any concerns or complaints, prompting family to report the recent history. She is noted to be tachypneic and frequently grinds her teeth on exam. She denies any chest pain. She eventually admits to a new cough with sputum production over the past few days. Family denies history of previous CHF exacerbation or respiratory issues. No recent fevers, chill, abdominal pain, nausea, vomiting or diarrhea. On exam, she is on room air with YEE at 91%, though tachypneic. Her oxygen saturation decreases to 87% when she sits forward for exam but recovers quickly after returning to initial position with head at 30 degrees. Family verifies that she is a DNR. Objective Vital signs: Temperature 96.7 F L 04/20/17 07:00 Pulse Rate 81 04/20/17 07:00 Respiratory Rate 20 04/20/17 09:21 Blood Pressure 118/58 04/20/17 07:00 Pulse Oximetry 94 04/20/17 09:21 Rhythm: Normal Sinus Rhythm Cardiac Ectopy: PAC's Height/Weight/BMI: Height 1.68 m Weight 89.2 kg Body Mass Index 34.4 - Constitutional Present: no acute distress, well nourished, well developed - Routine HEENT Exam Head: Present: normocephalic Eye: Absent: conjunctival icterus, scleral injection - Routine Respiratory Exam Present: decreased breath sounds (BASES) - Routine Cardiovascular Exam Present: RRR, S1, S2, murmur - Routine Abdominal Exam Present: normoactive bowel sounds, non tender, distended - Routine Extremities Exam Present: no edema, pulses intact - Routine Skin Exam Present: intact, dry, warm - Routine Neurological Exam Present: alert, normal speech - Routine Psychiatric Exam Present: normal affect, cooperative Hospital Course This is a general summary of the patient's hospital course. For more details refer to the complete medical record. Hospital course: 04/16/17: Admission Consulted Dr. Mandujano who recommended heparin drip for treatment of elevated troponin x 48 hours and diuresis with Lasix 40 mg IV Q8h. Echocardiogram ordered and troponins were monitored. Troponin peaked at 1.78 before trending down. BNP 4150. Family opposed to heart catheterization or aggressive measures. Home ASA was continued. Respiratory panel was assessed d/t cough, but this was neg for influenza/viral illnesses. She was started on a carb controlled diet ( soft with chopped meats and nectar thickened liquids) and BG was monitored. 04/17/17 Dr. Mandujano dc'd Coreg and advised against BB & nitrates d/t aortic stenosis. Lasix frequency was decreased to 40 mg IV BID. Slight increase in creatinine from 1.5 to 1.7. Good UOP. Heparin gtt continued. Sats down to 88% on room air and she was started on 2L of oxygen. BG controlled. 04/18/17 Lasix continued; with increase in CO2 (32), Diamox 500 mg PO was administered. Mg low at 1.4 and IV bolus was ordered. K stable at 3.8. BUN 37 and creatinine 1.5. 04/19/17 Lasix dose was changed to 40mg orally daily. Renal function stable. Heparin gtt dc'd. Mg improved to 2.1. Worked well with PT/OT. Started bladder retraining. 04/20/17: Discharge to SNF Labs: K 3.4 (LOW), BUN 38, creatinine 1.6. BNP 3090. Nocturnal oximetry: SpO2 ranged from 76-94% with an average of 87.7%. Her total desat time was 281 min andlongest desat time was over 12 min. Her lowest reading was 76%. Waveform suggests an obstructive component. This was discussed with her daughter, who does not intend on pursuing outpt eval for sleep apnea ( doesn't think her mother would tolerate the mask). Will DC home on 3L of nocturnal oxygen. Med changes: STOP coreg, STOP losartan. NO BB or NTG. DuoNeb PRN wheezing. DC instructions to include CHF zones -- monitor weight daily, monitor respiratory symptoms closely. F/U with Dr. Mandujano in 3-4 weeks. Recheck BMP on 04/23/17 to f/u on renal function and K level. F/U with Dr. Schuster in 1 week. Time spent with patient: discharge greater than 30 minutes Resuscitation Status: Do Not Resuscitate Discharge Plan - Discharge Disposition Discharge Date: 04/20/17 Disposition: 03 To SNU Not [facility] ([facility]) *Condition: Stable Reason For Visit (Visit label in EMR): elevated troponin/CO - Discharge Medications *Discharge Medications: New Atorvastatin [Lipitor] 10 mg PO HS tab Senna + Docusate [Senna Plus Tablet] 1 tab PO BID PRN tab PRN Reason: Constipation Albuterol/Ipratropium [Duoneb] 3 ml AEROSOL RTQID PRN #1 box PRN Reason: Wheezing Furosemide [Lasix] 40 mg PO DAILY tab Continue Levothyroxine Tab [Synthroid] 100 mcg PO ACB #0 Primidone [Mysoline] 25 mg PO BID #0 tab Insulin Lispro [HumaLOG] 16 unit SQ TIDWM Insulin Glargine,Hum.rec.anlog [Basaglar Kwikpen U-100] 40 unit SQ HS Omeprazole [Prilosec] 20 mg PO ACB Potassium Chloride 10 meq PO DAILY Lactobacillus Acidophilus [Probiotic] 1 cap PO DAILY Cholecalciferol (Vitamin D3) [Vitamin D3] 2,000 unit PO DAILY Ondansetron HCl 4 mg PO Q6H PRN PRN Reason: Nausea &/Or Vomiting Donepezil HCl [Aricept] 10 mg PO HS #0 Acetaminophen 650 mg PO Q5H PRN PRN Reason: Pain Aspirin [Adult Low Dose Aspirin EC] 81 mg PO DAILY Discontinued Nitroglycerin 0.4 mg SL Q5MIN3 PRN #0 PRN Reason: Chest Pain Famotidine [Pepcid] 20 mg PO HS #0 Carvedilol [Coreg] 3.125 mg PO BIDWM #0 tab Losartan Potassium 25 mg PO HS 30 Days #0 Furosemide [Lasix] 20 mg PO BID - Discharge Packet/Instructions *Diet: Consistent carbohydrate, 2 gm low sodium, soft diet with chopped meat and syrup thickened liquids *Activity: PT/OT. Use 3L of oxygen at night. *Pain Management/Treatment: Tylenol if needed. *Wound Care: N/A Additional Instructions: Bladder scan PRN. *Expected Signs/Symptoms: Fatigue, tiredness from hospital stay. She might have some dyspnea and coughing persist. *Notify Physician if: Weight gain/symptoms per CHF zone instructions. Chest pain, difficulty breathing, stroke-like symptoms, fever, or any new concerns. *During Business Hours Contact: Dr. Mandujano's office or Dr. Schuster's office. *After Business Hours Contact: The on-call provider for Dr. Mandujano or Dr. Schuster. *Pending Lab/Results: No Pending Lab Outpatient Orders: BMP - Basic Metabolic - [facility] Time Frame: 3 Days, Location: None Selected - Referrals/Follow Up *Referrals/Follow Up: Rohan Schuster MD [Family Provider] - 1 Week Orion Mandujano MD [Physician] - 3 Weeks Jasmin Quevedo APRN [Advanced Practice Nurse] - 1 Week - Patient Handouts Patient Handouts: Myocardial Infarction (GEN) - Dismissal Complete Discharge Instructions are:: Complete Physician Narrative - Narrative Attestation Narrative: Date: 04/20/17 Time: 1135 I have independently interviewed and examined pt prior to discharge. Chart reviewed. Case discussed with CM, Family, and my HIGH SCHOOL DIRECTOR. Care plan developed with my supervision; agree with above. Doing well this morning. Breathing well-not having cough or congestion. Ventura removed and pt urinating well. Eating well. Strength improving. Lungs: decreased, no wheezes/distress CV: regular with murmur MSE: awake alert Plan; Medically stable for discharge to skilled. Will need nocturnal oxygen; daughter not feeling pt would tolerate CPAP. PT/OT to help strength. detention to monitor cardiopulmonary status. See orders for details.
[2017-04-20] MEDS: ASPIRIN *EC* 81 MG TABLET PO SCH (10:25)
[2017-04-20] MEDS: LACTOBACILLUS (15B cfu) CAPSULE PO SCH (10:26)
[2017-04-20] MEDS: HEPARIN SUB-Q 5,000units/0.5ml INJECTION SQ SCH (10:26)
[2017-04-20] MEDS: ACETAMINOPHEN 325 MG TABLET PO PRN (10:27)
[2017-04-20] MEDS: PRIMIDONE 50 MG TABLET PO SCH (10:27)
[2017-04-20] MEDS: POLYETHYL GLYCOL 3350 17gm PACKET PO SCH (10:29)
[2017-04-20] MEDS: SALINE FLUSH 10ml SYRINGE IVF PRN (10:30)
--- NOTE | 2017-04-20 11:20 | Extended Care Facility Orders ---
Admission Orders Admit to:: Senior Living Allergies/Adverse Reactions: Allergies No Known Drug Allergies Allergy (Unknown, Verified 04/16/17 16:18) Admitting Diagnosis: elevated troponin/AK Admitting Physician: Chang Julien MD Attending Physician: Chang Julien MD Code Status: Do Not Resuscitate Anticiapted Length of Stay: 30 days or less Rehab Potential: good Rehab Prognosis: good Diet: Cardiac Consistent Carbohydrate Diet [DIET] Calorie Level: 2000 Sodium Restriction: 2GRAM Fluid Consistency: SYRUP THICK Food Consistency: CHOPPED MEAT Fat Content: LOW Other Diet Modifiers: SOFT Wound/Incision Care: N/A May use Facility Protocol or Standing Orders: Yes May have flu vaccine: Yes Evaluations/Treatment: PT, OT Senior Living Certification: I certify that SNF services are required to be given on an Inpatient basis because of the patient's need for snf care on a continuing basis for the condition(s) for which she received inpatient hospital services prior to her transfer to the SNF. SNF inpatient care is necessary for the following reasons Indication for Senior Living: Chest Pain Assessment/Care, Teach CHF - Additional Information In Event of Arrest: Do Not Start CPR Laboratory/Radiology: BMP on 04/23/17 to follow up on hypokalemia and elevated creatinine Referrals: Orion Mandujano MD [Physician] - 3 Weeks Jasmin Quevedo APRN [Advanced Practice Nurse] - 1 Week Rohan Schuster MD [Family Provider] - 1 Week Additional Orders: Bladder scan PRN. Nocturnal oxygen at 3L
[2017-04-20 15:27] VITALS: PULSE 82
== END 2017-04-20 14:20 | DRG 281 ==
LOC: ED 15:52 → SUATTDRO 17:47 → MED 17:47
PROVIDERS: ADMIT Internal Medicine; ATTEND Hospitalist